=== PATIENT | male | born 1945 | race Caucasian/White ===

== ENCOUNTER → 2019-06-26 12:42 | Outpatient (CLI) | payer MEDICARE, OTHER, SELFPAY ==
[2015-12-05 06:53] VITALS: BMI 32.8
[2019-06-26 13:10] LABS: Mucous, Urine 0 SEEN /hpf (<or=2+); Red Blood Cells-Urine 0 SEEN /hpf (0-5); Squamous Epithelial Cells - UA 0 SEEN /hpf (0-5)
--- NOTE | 2019-06-26 13:18 | RAD_ITS ---
STUDY: X-RAY CHEST REASON FOR EXAM: Male, 74 years old. WHEEZING. TECHNIQUE: PA and lateral views of the chest. COMPARISON: None. FINDINGS: The lungs are clear and expanded. There is no demonstrated pleural abnormality. Normal size heart. Normal mediastinum and rahul. Normal visualized pulmonary arteries. There is atherosclerotic calcification of the aortic arch with tortuosity. There are diffuse degenerative changes of the visualized thoracic spine. There is degenerative osteoarthritis of the bilateral shoulders. There is no demonstrated abnormality of the visualized soft tissue structures of the upper abdomen. RAD/Chest PA and Lateral IMPRESSION: No acute cardiopulmonary disease. Electronically Signed: Pamela De Oliveira MD at 3:54 EST , Service support ,
[2019-06-26 13:51] LABS: Color, Urine Yellow (Yellow); Glucose, Dipstick Normal (Normal); Ketone-Dipstick Negative (Negative); Leukocyte Esterase-Dipstick 100 /ul (Negative); Nitrite-Dipstick Negative (Negative); Occult Blood-Urine Negative /ul (Negative); Protein-Dipstick Negative (Negative); Urine Bilirubin Dipstick Negative (Negative); Urine Clarity Clear (Clear); Urine Urobilinogen Normal (Normal)
[2019-06-26 14:16] LABS: Microalbumin,Random Urine < 5.0 mg/L (NO RANGE EST.)
[2019-06-26 14:18] LABS: Absolute Lymphocyte Count 2.07 X10^3/uL (0.83-4.51); Bacteria 1+ /hpf (None Seen); Basophil# 0.04 X10^3/uL; Basophil% 0.6 % (0-1); Eosinophil# 0.15 X10^3/uL; Eosinophils% 2.2 % (0-5); Hematocrit 43.2 % (40-54); Hemoglobin 13.8 g/dL (13.0-16.5); Lymphocyte # 2.07 X10^3/ul (4.0); Mean Corp Hgb Conc 31.9 g/dL (32-36); Mean Corpuscular Hgb 28.2 pg (27.0-32.0); Mean Corpuscular Volume 88.2 fL (80-94); Monocyte# 0.59 X10^3/uL; Monocyte% 8.6 % (0-10); NRBC Flagged by Analyzer 0 % (0-5); Neutrophil # 4.03 X10^3/uL (2.7-7.7); Neutrophil % 58.3 % (47-70); Platelet Count 151 K/mm3 (150-450); RBC Distribution Width CV 13.9 % (11.6-14.6); RBC Distribution Width SD 44.7 fl (35.1-43.9); White Blood Cells 0-5 SEEN /hpf (0-5); White Blood Count 6.9 K/mm3 (4.4-11.0)
[2019-06-26 14:43] LABS: AST(SGOT) 18 U/L (15-37); Alanine Aminotransfer ALT/SGPT 41 U/L (16-61); Albumin, Serum 3.5 g/dL (3.2-5.0); Alkaline Phosphatase 64 U/L (45-117); Anion Gap 4 (5-15); BUN 19 mg/dL (7-18); BUN/Creat Ratio 16.4 RATIO (10-20); Calcium,Total 9.1 mg/dL (8.5-10.1); Chloride 104 mmol/L (98-107); Cholesterol 133 mg/dL (200); Creatinine, Serum 1.16 mg/dL (0.70-1.30); EST Glomerular Filtration Rate 66 mL/min (>60); Est Glom Filt Rate - Afr Amer 79 mL/min (>60); Globulin 3.6 g/dL (2.2-4.2); Glucose 93 mg/dL (74-106); High Density Lipoprotein 47 mg/dL; PSA,Total- Diagnostic 1.28 ng/mL (0.0-4.0); Potassium 4.4 mmol/L (3.5-5.1); Protein, Total 7.1 g/dL (6.4-8.2); Sodium Level 139 mmol/L (136-145); Triglycerides 144 mg/dL; Very Low Density Lipoprotein 29 mg/dL (5-40)
== END ==
PROVIDERS: PCP Family Medicine; Referring Provider Family Medicine; Visit Provider Family Medicine
DX: I25.10 Atherosclerotic heart disease of native coronary artery without angina pectoris (principal); N40.0 Benign prostatic hyperplasia without lower urinary tract symptoms; M13.0 Polyarthritis, unspecified; R06.2 Wheezing
CPT/HCPCS: 36415; 71046; 80053; 80061; 81001; 82043; 82570; 84153; 85025

== ENCOUNTER → 2019-07-12 12:58 | Outpatient (CLI) | payer MEDICARE, OTHER, SELFPAY ==
--- NOTE | 2019-07-12 13:04 | ECHOCS_ITS ---
Reason For Study: WHEEZING Procedure This was a 2D Doppler, Color Flow transthoracic echocardiogram. The study was technically difficult. Exam performed in department. Left Ventricle Normal size and thickness. The estimated ejection fraction is 65 %. Stage 1 diastolic dysfunction. No regional wall motion abnormalities noted. Right Ventricle Mildly dilated right ventricle. Normal systolic function. Atria Normal left atrium. Normal right atrium. Normal atrial septum. Mitral Valve The mitral valve is structurally normal. No prolapse or stenosis seen. Tricuspid Valve Normal tricuspid valve. Trivial tricuspid valve insufficiency. Right ventricular systolic pressure estimated to be 27 mmHg. Aortic Valve Trisinus/trileaflet aortic valve. Normal aortic valve. Pulmonic Valve Normal pulmonic valve. Great Vessels Normal aortic root. Normal arch. Normal inferior vena cava. Inferior vena cava collapse with sniff. Pericardium/Pleural No pericardial effusion. Medication Diluted definity 3ml given slow IV push to enhance endocardial definition. MMode/2D Measurements & Calculations LVIDd: 4.6 cm IVSd: 0.94 cm Ao root diam: 3.0 cm LVIDs: 3.1 cm LVPWd: 1.0 cm RVDd: 3.9 cm FS: 31.1 % LAV(MOD-bp): 28.2 ml LVAd ap4: 22.7 cm2 SV(MOD-sp4): 37.8 ml LAV(MOD-bp) Indexed: 13.8 ml/m2 EDV(MOD-sp4): 59.1 ml LAV(MOD-sp2): 29.1 ml EDV(sp4-el): 62.1 ml LAV(MOD-sp4): 27.6 ml LVAs ap4: 12.2 cm2 ESV(MOD-sp4): 21.3 ml ESV(sp4-el): 22.0 ml EF(MOD-sp4): 64.0 % EF(sp4-el): 64.5 % SV(sp4-el): 40.1 ml LA A4 area: 13.4 cm2 LA dimension(2D): 3.3 cm RA A4 area: 11.2 cm2 Time Measurements MV dec time: 0.21 sec Doppler Measurements & Calculations MV E max ravindra: 79.8 cm/sec Lat Peak E' Ravindra: 11.2 cm/sec Med Peak E' Ravindra: 9.1 cm/sec MV A max ravindra: 102.3 cm/sec E/E' lat: 7.1 E/E' med: 8.8 MV E/A: 0.78 Ao V2 max: 155.1 cm/sec LV V1 max: 114.3 cm/sec PA V2 max: 125.1 cm/sec Ao max P.6 mmHg LV V1 max P.2 mmHg TR max ravindra: 232.2 cm/sec TR max P.6 mmHg Interpretation Summary The estimated ejection fraction is 65 %. Stage 1 diastolic dysfunction. Mildly dilated right ventricle. Trivial tricuspid valve insufficiency. Right ventricular systolic pressure estimated to be 27 mmHg. The study was technically difficult. Contrast injection was performed. There is no comparison study available. Ordering Physician: Jayden Hennessy Referring Physician: Jayden Hennessy Performed By: Rosario Smith RDCS
--- NOTE | 2019-07-12 13:55 | CT_ITS ---
STUDY: CT CHEST WITHOUT CONTRAST REASON FOR EXAM: Male, 74 years old. ORDERING PHYS WISHES TO R/O WHEEZING, CARDIOMEGALY, PULMONARY CONGESTION RADIATION DOSAGE (If Supplied By Facility): CTDIvol = ( 19.52 ) mGy, DLP = ( 660.11 ) mGycm TECHNIQUE: Transaxial imaging was performed without the administration of intravenous contrast material. Multiplanar coronal and sagittal images were reformatted. Individualized dose optimization techniques were used for this CT. COMPARISON: Comparison is made with prior chest radiograph dated June 26, 2019. FINDINGS: Small bilateral benign-appearing axillary lymph nodes. There is a 3.7 mm noncalcified nodule in the peripheral aspect of the left lower lobe as seen on axial image #107. A follow-up CT scan in 12 months is recommended. There is no demonstrated pleural abnormality. There are calcifications of the coronary arteries. Normal mediastinum. Normal hilar regions. Normal unenhanced pulmonary arteries. There is atherosclerotic calcification of the aortic arch. There are degenerative changes of the thoracic spine. Small hiatal hernia. CT/Chest without Contrast IMPRESSION: 3.7 mm noncalcified nodule in the peripheral lateral aspect of the left lower lobe. A one-year follow-up examination is recommended. Electronically Signed: Dayton Casas, at 15:22 EDT , Service support ,
== END ==
PROVIDERS: PCP Family Medicine; Referring Provider Family Medicine; Visit Provider Family Medicine
DX: R06.2 Wheezing (principal); R91.8 Other nonspecific abnormal finding of lung field
CPT/HCPCS: 71250; 93306; Q9957; A4216; C8929

== ENCOUNTER → 2019-09-11 17:31 | Outpatient (CLI) | payer MEDICARE, OTHER, SELFPAY ==
[2019-09-04 14:41] VITALS: BMI 32.8
[2019-09-11 17:38] LABS: Mucous, Urine 0 SEEN /hpf (<or=2+); Red Blood Cells-Urine 0 SEEN /hpf (0-5)
[2019-09-11 18:42] LABS: Color, Urine Yellow (Yellow); Glucose, Dipstick Normal (Normal); Ketone-Dipstick Negative (Negative); Leukocyte Esterase-Dipstick 500 /ul (Negative); Nitrite-Dipstick Positive (Negative); Occult Blood-Urine Negative /ul (Negative); Protein-Dipstick Negative (Negative); Specific Gravity, Urine 1.015 (1.002-1.030); Urine Bilirubin Dipstick Negative (Negative); Urine Clarity Sl. Cloudy (Clear); Urine Urobilinogen Normal (Normal)
[2019-09-11 18:57] LABS: Amorphous Sediment 1+; Bacteria 2+ /hpf (None Seen); Squamous Epithelial Cells - UA 0-5 SEEN /hpf (0-5); White Blood Cells 0-5 SEEN /hpf (0-5)
== END ==
PROVIDERS: PCP Family Medicine; Referring Provider Family Medicine; Visit Provider Family Medicine
DX: N39.0 Urinary tract infection, site not specified (principal)
CPT/HCPCS: 81001; 87077; 87086; 87088; 87186

== ENCOUNTER → 2020-01-22 16:01 | Outpatient (CLI) | payer MEDICARE, OTHER, SELFPAY ==
[2019-09-04 14:41] VITALS: BMI 32.8
--- NOTE | 2020-01-22 16:05 | CT_ITS ---
STUDY: CT ABDOMEN AND PELVIS WITHOUT CONTRAST REASON FOR EXAM: Male, 74 years old. Incontinence, laparoscopic Love fundoplication. RADIATION DOSAGE (If Supplied By Facility): CTDIvol = ( 18.18 ) mGy, DLP = ( 903.93 ) mGycm TECHNIQUE: Transaxial images were obtained from the dome of the diaphragm to the symphysis pubis without oral contrast, and without intravenous contrast. Sagittal and coronal images were reconstructed. Individualized dose optimization techniques were used for this CT. COMPARISON: None. FINDINGS: The visualized lung bases are unremarkable. The visualized portions of the heart are within normal limits. Postoperative changes of the distal esophagus. Normal liver. Normal gallbladder and extrahepatic biliary system. Normal spleen. Normal pancreas. Normal bilateral adrenal glands. Normal right kidney. Normal left kidney. Normal visualized stomach. Normal small intestine. Minimal diverticulosis involving the sigmoid colon. ] Appendix not visualized compatible with history of appendectomy. Fusiform distal abdominal aortic aneurysm measuring 6.1 x 4.2 x 3.7 cm in the craniocaudad, AP and transverse dimensions respectively. Atherosclerotic calcification of the abdominal aorta and proximal common iliac arteries. Normal inferior vena cava. Normal retroperitoneum. No intra-abdominal free air. Normal urinary bladder. Prostate gland is not enlarged. Normal abdominal wall. Multilevel degenerative changes of the lumbar spine. CT/Abdomen/Pelvis without Cont IMPRESSION: No acute findings in the abdomen or pelvis. No evidence of bowel obstruction. Minimal sigmoid diverticulosis. 4.2 x 3.7 cm fusiform distal abdominal aortic aneurysm. Electronically Signed: Matthew Summers MD at 4:21 EDT , Service support ,
== END ==
PROVIDERS: PCP Family Medicine; Referring Provider Urology; Visit Provider Urology
DX: R35.0 Frequency of micturition (principal); N39.41 Urge incontinence; N39.0 Urinary tract infection, site not specified
CPT/HCPCS: 74176

== ENCOUNTER → 2020-05-13 14:46 | Outpatient (CLI) | payer MEDICARE, OTHER, SELFPAY ==
[2019-09-04 14:41] VITALS: BMI 32.8
[2020-05-13 16:47] LABS: Absolute Lymphocyte Count 2.21 X10^3/uL (0.83-4.51); Absolute Neutrophil Count 4.5 X10^3/uL (2.0-7.7); Basophil# 0.03 X10^3/uL; Basophil% 0.4 % (0-1); Eosinophil# 0.18 X10^3/uL; Eosinophils% 2.3 % (0-5); Hematocrit 47.5 % (40-54); Hemoglobin 15.1 g/dL (13.0-16.5); Lymphocyte # 2.21 X10^3/ul (4.0); Lymphocyte % 28.8 % (19-41); Mean Corp Hgb Conc 31.8 g/dL (32-36); Mean Corpuscular Hgb 27.5 pg (27.0-32.0); Mean Corpuscular Volume 86.4 fL (80-94); Mean Platelet Vol. 10.9 fl (6.2-12.0); Monocyte# 0.73 X10^3/uL; Monocyte% 9.5 % (0-10); NRBC Flagged by Analyzer 0 % (0-5); Neutrophil # 4.51 X10^3/uL (2.7-7.7); Neutrophil % 58.7 % (47-70); Platelet Count 177 K/mm3 (150-450); RBC Distribution Width CV 14.9 % (11.6-14.6); RBC Distribution Width SD 47.8 fl (35.1-43.9); White Blood Count 7.7 K/mm3 (4.4-11.0)
[2020-05-13 17:18] LABS: ALB/GLOB Ratio 0.9 RATIO (0.9-2.4); AST(SGOT) 23 U/L (15-37); Alanine Aminotransfer ALT/SGPT 53 U/L (16-61); Albumin, Serum 3.6 g/dL (3.2-5.0); Alkaline Phosphatase 82 U/L (45-117); Anion Gap 6 (5-15); BUN 22 mg/dL (7-18); Calcium,Total 9.2 mg/dL (8.5-10.1); Chloride 106 mmol/L (98-107); EST Glomerular Filtration Rate 70 mL/min (>60); Est Glom Filt Rate - Afr Amer 84 mL/min (>60); Globulin 3.8 g/dL (2.2-4.2); Glucose 85 mg/dL (74-106); Potassium 4.3 mmol/L (3.5-5.1); Protein, Total 7.4 g/dL (6.4-8.2); Sodium Level 139 mmol/L (136-145); Thyroid Stim Hormone (TSH) 1.85 uIU/mL (0.358-3.74)
== END ==
PROVIDERS: PCP Family Medicine; Referring Provider Family Medicine; Visit Provider Family Medicine
DX: I10 Essential (primary) hypertension (principal); R60.9 Edema, unspecified
CPT/HCPCS: 36415; 80053; 84443; 85025

== ENCOUNTER 2020-07-11 12:12 | Outpatient (CLI) | payer MEDICARE, OTHER, SELFPAY ==
[2020-07-11 12:30] VITALS: BP 147/88; PULSE 103; RESP 18; TEMP 37.1; O2SAT 92; BMI 31.8
[2020-07-11 13:22] VITALS: BP 117/70; PULSE 89; RESP 18; TEMP 36.6; O2SAT 93
[2020-07-11 13:53] VITALS: BP 148/87; PULSE 84; RESP 18; TEMP 36.4; O2SAT 98
[2020-07-11 14:21] VITALS: BP 140/82; PULSE 83; RESP 18; TEMP 36.5; O2SAT 97
[2020-07-11 14:51] VITALS: BP 133/70; PULSE 86; RESP 18; TEMP 36.6; O2SAT 96
[2020-07-11 15:21] VITALS: BP 154/81; PULSE 91; RESP 18; TEMP 36.4; O2SAT 97
== END 2020-07-11 15:37 | disposition home or self-care (01) ==
LOC: MS2OUT 12:12 → MS2 12:13
PROVIDERS: PCP Family Medicine; Referring Provider Nurse Practitioner Acute Care; Visit Provider Nurse Practitioner Acute Care
DX: U07.1 COVID-19 (principal)
CPT/HCPCS: J7050; M0239; Q0245

== ENCOUNTER → 2020-12-02 13:38 | Outpatient (CLI) | payer MEDICARE, OTHER, SELFPAY ==
--- NOTE | 2020-12-02 13:43 | CT_ITS ---
INDICATION: repeat f/u of mass from 07/2020 EXAMINATION: CT CHEST WITHOUT CONTRAST - CT Chest W/O Contrast Injection TECHNIQUE: Helically acquired images were obtained of the chest. A radiation dose optimization technique was used for this scan. IV Contrast dosage and agent: None. COMPARISON: None. FINDINGS: LUNGS, PLEURA AND LARGE AIRWAYS: A stable 3.7 mm nodular density which is noncalcified is noted in the superior segment of the left lower lobe best noted on axial cut 51. This was noted previously and is unchanged. The lack of change since 07/12/2019 is most indicative of a noncalcified granuloma. A follow-up CT scan a year was continued stability is diagnostic of a granuloma. Very minimal pleural thickening is noted along the posterior aspect of the left lung. No pneumothorax. THYROID: No thyroid lesions. HEART AND PERICARDIUM: Coronary calcific arteriosclerosis is identified. No pericardial effusion. VESSELS: Thoracic aorta is not dilated. MEDIASTINUM AND YOUNG: No mediastinal or hilar adenopathy. Esophagus is unremarkable. No hiatal hernia. UPPER ABDOMEN: No acute pathology. BONES: No suspicious lytic or blastic abnormality. CT/Chest without Contrast IMPRESSION: 1.A noncalcified 3.7 mm pleural-based granulomas noted in the superior segment of the left lower lobe which is unchanged. A follow-up noncontrast CT scan of the chest in a year with continued stability is diagnostic of a benign granuloma.. 2. Coronary calcific arteriosclerosis Electronically Signed: Joel Andrea DO at 7:55 EDT Tel , Service support ,
== END ==
PROVIDERS: PCP Family Medicine; Referring Provider Family Medicine; Visit Provider Family Medicine
DX: R91.8 Other nonspecific abnormal finding of lung field (principal)
CPT/HCPCS: 71250

== ENCOUNTER → 2021-01-01 17:24 | Outpatient (CLI) | payer MEDICARE, OTHER, SELFPAY | PROVIDERS: PCP Family Medicine; Visit Provider Family Medicine | DX: Z20.822 Contact with and (suspected) exposure to COVID-19 (principal) | CPT/HCPCS: 87635; U0005; U0003 ==

== ENCOUNTER 2021-01-03 16:00 | Outpatient (CLI) | payer MEDICARE, OTHER, SELFPAY ==
[2021-01-03 16:07] VITALS: BP 172/80; PULSE 101; RESP 20; TEMP 37; O2SAT 94; BMI 31.8
[2021-01-03] MEDS: 0.9% Saline Lock 10 ML Syringe IV (16:28)
[2021-01-03 16:54] VITALS: BP 149/93; PULSE 92; RESP 18; TEMP 36.9; O2SAT 94
[2021-01-03 17:54] VITALS: BP 156/90; PULSE 95; RESP 18; TEMP 36.9; O2SAT 94
== END 2021-01-03 17:58 | disposition home or self-care (01) ==
LOC: MS2OUT 16:01 → MS2 16:02
PROVIDERS: PCP Family Medicine; Referring Provider Nurse Practitioner Acute Care; Visit Provider Nurse Practitioner Acute Care
DX: Z23 Encounter for immunization (principal); U07.1 COVID-19
CPT/HCPCS: J7050; M0243; A4216; Q0244

== ENCOUNTER → 2021-02-25 14:36 | Outpatient (CLI) | payer MEDICARE, OTHER, SELFPAY ==
[2021-02-25 17:35] LABS: Absolute Lymphocyte Count 2.33 X10^3/uL (0.83-4.51); Absolute Neutrophil Count 6.3 X10^3/uL (2.0-7.7); Basophil# 0.05 X10^3/uL; Basophil% 0.5 % (0-1); Eosinophil# 0.18 X10^3/uL; Eosinophils% 1.9 % (0-5); Hematocrit 50.3 % (40-54); Hemoglobin 16.6 g/dL (13.0-16.5); Lymphocyte # 2.33 X10^3/ul (0.83-4.51); Lymphocyte % 24.7 % (19-41); Mean Corpuscular Hgb 28.2 pg (27.0-32.0); Mean Corpuscular Volume 85.5 fL (80-94); Mean Platelet Vol. 10.7 fl (6.2-12.0); Monocyte# 0.61 X10^3/uL; Monocyte% 6.5 % (0-10); NRBC Flagged by Analyzer 0 % (0-5); Neutrophil # 6.25 X10^3/uL (2.7-7.7); Neutrophil % 66.1 % (47-70); Platelet Count 196 K/mm3 (150-450); RBC Distribution Width CV 14.6 % (11.6-14.6); RBC Distribution Width SD 45.8 fl (35.1-43.9); Red Blood Count 5.88 M/mm3 (4.6-6.2); White Blood Count 9.5 K/mm3 (4.4-11.0)
[2021-02-25 17:51] LABS: Erythrocyte Sedimentation Rate 17 mm/hr (0-20)
[2021-02-25 18:04] LABS: Vitamin B12 655 pg/mL (211-911)
[2021-02-25 18:14] LABS: ALB/GLOB Ratio 0.7 RATIO (0.9-2.4); AST(SGOT) 50 U/L (15-37); Alanine Aminotransfer ALT/SGPT 90 U/L (16-61); Albumin, Serum 3.2 g/dL (3.2-5.0); Alkaline Phosphatase 66 U/L (45-117); Anion Gap 8 (5-15); BUN 27 mg/dL (7-18); BUN/Creat Ratio 19.4 RATIO (10-20); Chloride 98 mmol/L (98-107); Creatinine, Serum 1.39 mg/dL (0.70-1.30); EST Glomerular Filtration Rate 53 mL/min (>60); Est Glom Filt Rate - Afr Amer 64 mL/min (>60); Ferritin 80 ng/mL (26-388); Globulin 4.6 g/dL (2.2-4.2); Glucose 182 mg/dL (74-106); Potassium 3.9 mmol/L (3.5-5.1); Protein, Total 7.8 g/dL (6.4-8.2); Sodium Level 134 mmol/L (136-145); Thyroid Stim Hormone (TSH) 1.39 uIU/mL (0.358-3.74)
[2021-02-25 18:15] LABS: Hemoglobin A1c 6.2 % (3.8-5.6)
[2021-02-26 13:00] LABS: Hepatitis C Antibody Preliminary Reactive (Nonreactive)
== END ==
PROVIDERS: PCP Family Medicine; Referring Provider Family Medicine; Visit Provider Family Medicine
DX: R53.83 Other fatigue (principal); E78.00 Pure hypercholesterolemia, unspecified; B19.20 Unspecified viral hepatitis C without hepatic coma; Z11.59 Encounter for screening for other viral diseases; Z79.899 Other long term (current) drug therapy
CPT/HCPCS: 80053; 82607; 82728; 83036; 84443; 85025; 85652; 86803

== ENCOUNTER 2021-05-13 15:32 | Outpatient (CLI) | payer MEDICARE, OTHER, SELFPAY ==
--- NOTE | 2021-05-13 15:42 | CT_ITS ---
STUDY: CT ABDOMEN AND PELVIS WITHOUT CONTRAST REASON FOR EXAM: Male, 76 years old. Gross hematuria. RADIATION DOSAGE (If Supplied By Facility): CTDIvol = ( 19.69 ) mGy, DLP = ( 1003.46 ) mGycm TECHNIQUE: Transaxial images were obtained from the dome of the diaphragm to the symphysis pubis without oral contrast, and without intravenous contrast. Sagittal and coronal images were reconstructed. Individualized dose optimization techniques were used for this CT. COMPARISON: 01/22/2020. FINDINGS: The visualized lung bases are unremarkable. The visualized portions of the heart are within normal limits. Normal liver. Normal gallbladder and extrahepatic biliary system. Normal spleen. Normal pancreas. Normal bilateral adrenal glands. Normal right kidney. Normal left kidney. Normal bilateral ureters. Small hiatal hernia. The stomach is otherwise grossly normal. Normal small intestine. And colonic diverticuli without acute inflammatory change. The appendix is visualized and appears normal. There is atherosclerotic changes of the abdominal aorta. There is a fusiform infrarenal abdominal aortic aneurysm measuring 4 x 4.1 cm in diameter. This tapers to the bifurcation. Normal inferior vena cava. Normal retroperitoneum. Normal urinary bladder. The prostate is small in size with central calcifications. No pelvic lymphadenopathy. No free air or free fluid is seen within the peritoneal cavity. Normal abdominal wall. There are diffuse degenerative changes of the visualized lumbar spine. CT/Abdomen/Pelvis without Cont IMPRESSION: 1. Stable abdominal aortic aneurysm. 2. No evidence of acute renal, ureteral or urinary bladder abnormality. 3. No evidence of acute intra-abdominal process or interval change. Electronically Signed: Landen Barry DO at 16:44 EST Tel [phone], Service support ,
== END 2021-05-13 23:59 | disposition short-term general hospital (02) ==
PROVIDERS: PCP Family Medicine; Referring Provider Urology; Visit Provider Urology
DX: R31.0 Gross hematuria (principal)
CPT/HCPCS: 74176; 87077; 87086; 87088; 87186

== ENCOUNTER 2021-06-11 14:30 | Outpatient (CLI) | payer MEDICARE, OTHER, SELFPAY ==
[2021-06-11 15:23] LABS: Absolute Lymphocyte Count 2.73 X10^3/uL (0.83-4.51); Absolute Neutrophil Count 6.7 X10^3/uL (2.0-7.7); Basophil# 0.04 X10^3/uL; Basophil% 0.4 % (0-1); Eosinophil# 0.13 X10^3/uL; Eosinophils% 1.2 % (0-5); Hematocrit 49.9 % (40-54); Lymphocyte # 2.73 X10^3/ul (0.83-4.51); Lymphocyte % 25.9 % (19-41); Mean Corp Hgb Conc 34.1 g/dL (32-36); Mean Corpuscular Hgb 28.1 pg (27.0-32.0); Mean Corpuscular Volume 82.6 fL (80-94); Mean Platelet Vol. 10.7 fl (6.2-12.0); Monocyte# 0.86 X10^3/uL; Monocyte% 8.2 % (0-10); NRBC Flagged by Analyzer 0 % (0-5); Neutrophil # 6.74 X10^3/uL (2.7-7.7); Platelet Count 201 K/mm3 (150-450); RBC Distribution Width SD 45.5 fl (35.1-43.9); Red Blood Count 6.04 M/mm3 (4.6-6.2); White Blood Count 10.5 K/mm3 (4.4-11.0)
[2021-06-11 16:01] LABS: ALB/GLOB Ratio 0.8 RATIO (0.9-2.4); AST(SGOT) 53 U/L (15-37); Alanine Aminotransfer ALT/SGPT 105 U/L (16-61); Albumin, Serum 3.4 g/dL (3.2-5.0); Alkaline Phosphatase 68 U/L (45-117); Anion Gap 9 (5-15); BUN 25 mg/dL (7-18); Calcium,Total 9.3 mg/dL (8.5-10.1); Chloride 97 mmol/L (98-107); Creatinine, Serum 1.25 mg/dL (0.70-1.30); EST Glomerular Filtration Rate 60 mL/min (>60); Est Glom Filt Rate - Afr Amer 72 mL/min (>60); Globulin 4.4 g/dL (2.2-4.2); Glucose 100 mg/dL (74-106); Potassium 3.5 mmol/L (3.5-5.1); Protein, Total 7.8 g/dL (6.4-8.2); Sodium Level 134 mmol/L (136-145)
[2021-06-11 16:05] LABS: Hemoglobin A1c 5.7 % (3.8-5.6)
== END 2021-06-11 23:59 | disposition home or self-care (01) ==
PROVIDERS: PCP Family Medicine; Referring Provider Family Medicine; Visit Provider Family Medicine
DX: G47.30 Sleep apnea, unspecified (principal); R73.03 Prediabetes
CPT/HCPCS: 36415; 80053; 83036; 85025

== ENCOUNTER 2021-06-13 09:53 | Day surgery (SDC) | payer MEDICARE, OTHER, SELFPAY ==
[2021-06-13 10:00] VITALS: BP 151/78; PULSE 70; RESP 16; TEMP 36.7; O2SAT 96; BMI 34.4
--- NOTE | 2021-06-13 11:02 | EKG12_ITS ---
Test Reason : PRE-OP Blood Pressure : / mmHG Vent. Rate : 071 BPM Atrial Rate : 071 BPM P-R Int : 212 ms QRS Dur : 092 ms QT Int : 404 ms P-R-T Axes : 046 019 -02 degrees QTc Int : 439 ms Sinus rhythm with 1st degree A-V block Low voltage QRS Inferior infarct , age undetermined , cannot be excluded Abnormal ECG Confirmed by ALEJANDRO RAHMAN, ZUHAIR ([id number]), copy editor AMI BEARD ([id number]) on 06/18/2021 12:43:23 PM Referred By: Julio C Carrasquillo Confirmed By:ZUHAIR ALLEN MD
--- NOTE | 2021-06-13 12:05 | BLA_PTH ---
PATIENT: RADU GAITAN Jr. LOC: [facility] [place] U#:[id number] AGE/SX: 76/M ROOM: RE06/13/[address]: Dr. Julio C Carrasquillo MD : 1945 BED: DIS: 06/13/2021 SPEC #: [id number] RECD: 06/13/21 13:09 STATUS: JAKE LEMOS #: [id number] СВЕТЛАНА: 06/13/21 12:[address]: Julio C Carrasquillo DEPT: SURGICAL PATHOLOGY RECD BY: Lolis Nowak ENTERED: 06/13/21 13:25 SP TYPE: BLADDER BX OTHR DR: Dr. Jayden Hennessy MD Tissues: Urinary bladder, NOS Procedures: Surgery Specimen Level IV HEADER OPERATION: Cyst, retrograde pyelograms, bladder biopsy PRE-OP DIAGNOSIS: BPH with lower urinary tract symptoms; gross hematuria; chronic cystitis TISSUE SUBMITTED: Bladder biopsy MICROSCOPIC DIAGNOSIS Urinary bladder, biopsy: Chronic cystitis. See comment. AM:gisela 06/16/2021 COMMENT Benign fragments of detrusor muscle are present in the biopsy. MICROSCOPIC DESCRIPTION Slides are reviewed. GROSS DESCRIPTION Received in fixative is one container labeled with the patient's name and designated bladder biopsy. The specimen consists of one irregular fragment of light lynn soft tissue that measures 0.5 x 0.2 x 0.1 cm. The specimen is totally submitted in one cassette. / SJ:gsiela 06/13/2021 TC:3 CPT: 42454
[2021-06-13] MEDS: Cefazolin 2 GM in 0.9% Normal Saline 100 ML IV (12:11)
--- NOTE | 2021-06-13 12:49 | PCM.OPRPT ---
Report of Operation Date of Procedure: 06/13/21 Pre-Operative Diagnosis: Gross hematuria and recurrent urinary tract infections Post-Operative Diagnosis: Same Surgery/Procedure Performed:: Cystoscopy, bladder biopsy, retrograde pyelogram Description of Surgical Findings:: 76-year-old male who is in a wheelchair and does void on his own but has been getting recurrent infection now with family is reporting gross hematuria so today we will do a work-up with a cystoscopy retrograde pyelogram he did have a CAT scan in the past that was unremarkable. He does have a history of recurrent urinary tract infections I think mostly due to his disability dysfunctional voiding he is on medical therapy for this with methenamine and tamsulosin oxybutynin. Family was requesting a possible TURP think this would help with the situation but I told him the very likely would not do a TURP given what I know over the patient but we will do an evaluation today and see if it is necessary. Patient was taken back to the operating room after smooth induction of anesthesia he was placed in dorsolithotomy position. The penis testicles were prepped and draped in usual fashion, he was uncircumcised, the urethra length he had some minor strictures or scar tissues along the urethra was able to get through this with the cystoscope very minor narrowing not significant once I got through this area then the prostate was short in length was not obstructive at all no obstruction TURP was not necessary took a photo of the document no obstruction. 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 I then did a retrograde pyelogram the right side this was normal we then cannulated the left ureteral orifice with a 5 Maori open-ended catheter and did a retrograde pyelogram of the right side left side and these were both normal. At this point I do not see any anatomical features that are causing his recurrent urinary tract infections I think his infection is primary related to his overall debility and chronic state of debility so bladder was drained was handed off the specimen of the tissue for the biopsy see him back in about a month or so for checkup the patient was taken back in good condition. Surgeon: adam Type of Anesthesia: General Drains: none Admit VTE Documentation VTE Present on Admission: No VTE Mechan Device Prophylaxis: SCD's VTE Pharm Prophylaxis ordered?: No
--- NOTE | 2021-06-13 12:53 | PCM.DC ---
Discharge Instructions Diet Discharge Diet: No restrictions Activity Discharge Activity: Return to Normal Activity Follow Up Care Please Follow Up With: Julio C Carrasquillo MD When: Call [phone] for an appointment Test Results: Test results from this visit will be discussed in further detail at your follow-up appointment, if applicable. Discharge Plan Admission Primary Reason for Your Visit: cystoscopy Attending Provider: Julio C Carrasquillo Primary Care Provider: Jayden Hennessy Discharge Orders/Prescriptions Prescriptions: Continued meloxicam 15 mg tablet 15 mg PO DAILY RF: 0 multivitamin capsule 1 cap PO DAILY RF: 0 cetirizine 10 mg capsule 10 mg PO DAILY RF: 0 finasteride 5 mg tablet 5 mg PO DAILY RF: 0 methenamine hippurate 1 gram tablet 1 g PO DAILY RF: 0 nitroglycerin 0.4 mg tablet, sublingual 0.4 mg SL Q5M PRN (Reason: chest pain) RF: 0 oxybutynin chloride 10 mg tablet extended release 24hr 10 mg PO DAILY RF: 0 nystatin 100,000 unit/gram powder 1 applic TOPICAL DAILY PRN (Reason: yeast infection) RF: 0 Lactobacillus acidophilus 1 billion cell tablet 1,000 mmu cells PO DAILY RF: 0 spironolacton-hydrochlorothiaz 25-25 mg tablet 1 tab PO DAILY RF: 0 ksehzthp-pppsxp-msqy-lemon 450-100 mg capsule 1 cap PO PRN PRN (Reason: muscle cramps) RF: 0 zinc 15 mg tablet 15 mg PO DAILY PRN (Reason: supplement) RF: 0 tamsulosin 0.4 MG capsule 0.4 mg PO QHS RF: 0 simvastatin 10 MG tablet 10 mg PO QHS RF: 0 ascorbic acid (vitamin C) 1,000 mg Capsule, Extended Release 1 cap PO QHS RF: 0 Held aspirin 81 mg tablet,delayed release (DR/EC) 81 mg PO DAILY RF: 0 Hold Instructions: till bleeding stops Referrals / Follow Up: Jayden Hennessy MD [Primary Care Provider] - Julio C Carrasquillo MD [STAFF PHYSICIAN] - Disposition Disposition (needs filled in before D/C Order can be placed): Home, Self Care
[2021-06-13 13:00] VITALS: BP 145/87; PULSE 62; RESP 18; TEMP 35.9; O2SAT 95; O2SAT 97
[2021-06-13] MEDS: Lactated Ringers 1,000 ML 15 ML IV (13:11)
[2021-06-13 13:15] VITALS: BP 137/80; PULSE 59; RESP 20
[2021-06-13 13:30] VITALS: BP 137/80; PULSE 64; RESP 20; O2SAT 95
[2021-06-13 13:38] VITALS: BP 139/77; BP 151/78; PULSE 61; RESP 18; TEMP 35.9; O2SAT 95
[2021-06-13 14:37] VITALS: BP 139/62; BP 151/78; PULSE 71; RESP 16; TEMP 37; O2SAT 95
--- NOTE | 2021-06-13 15:00 | SUR.PHASEII ---
[facility] out of network with patients insurance. Family is requesting that rx be sent to [facility] and a script sent to their mail order pharmacy. Notified Sree in pharmacy to to send script to [facility], Notified Dr Carrasquillo that family is requesting a script sent to mail order pharmacy. instructed patient to check with pharmacy tomorrow and to call [facility] office if they do not have the script. ksconicole
== END 2021-06-13 23:59 | disposition home or self-care (01) ==
LOC: SDC 09:54 → AC 09:54
PROVIDERS: PCP Family Medicine; Referring Provider Urology; Visit Provider Urology
PROC: (CPT 52332; principal; 2021-06-13 11:55)
DX: N40.1 Benign prostatic hyperplasia with lower urinary tract symptoms (principal); G82.20 Paraplegia, unspecified; R31.0 Gross hematuria; G47.10 Hypersomnia, unspecified; K21.9 Gastro-esophageal reflux disease without esophagitis; I25.2 Old myocardial infarction; E78.5 Hyperlipidemia, unspecified; I10 Essential (primary) hypertension; N39.41 Urge incontinence; R35.0 Frequency of micturition; J45.20 Mild intermittent asthma, uncomplicated; Z79.899 Other long term (current) drug therapy; Z79.82 Long term (current) use of aspirin; Z99.3 Dependence on wheelchair; Z86.16 Personal history of COVID-19
CPT/HCPCS: 52204; 00910; 76000; 87426; 88305; 93005; C9803; J7120; C1769; J2405

== ENCOUNTER 2021-06-16 20:15 | Outpatient (CLI) | payer MEDICARE, OTHER, SELFPAY | END 2021-06-16 23:59 | disposition home or self-care (01) | PROVIDERS: PCP Family Medicine; Referring Provider Nurse Practitioner Acute Care; Visit Provider Nurse Practitioner Acute Care | DX: G47.33 Obstructive sleep apnea (adult) (pediatric) (principal) | CPT/HCPCS: 95811 ==

== ENCOUNTER → 2022-03-31 | Outpatient (CLI) | payer MEDICARE, OTHER, SELFPAY ==
--- NOTE | 2022-03-31 14:25 | RAD_ITS ---
STUDY: X-RAY - THORACIC SPINE REASON FOR EXAM: Male, 77 years old. BACK PAIN TECHNIQUE: 2 view(s) of the thoracic spine were obtained. COMPARISON: None. FINDINGS: Normal kyphosis of the thoracic spine. There is no substantial scoliosis. There is multilevel osteophyte formation and endplate spondylosis in the mid to lower thoracic spine. Normal disc space heights. The soft tissue structures are unremarkable. RAD/Thoracic Spine 2 Views IMPRESSION: Degenerative changes. Electronically Signed: Cabrera Lee MD at 15:51 EST ,
--- NOTE | 2022-03-31 14:35 | RAD_ITS ---
STUDY: X-RAY - LUMBOSACRAL SPINE REASON FOR EXAM: Male, 77 years old. BACK PAIN TECHNIQUE: 6 view(s) of the lumbosacral spine were obtained. COMPARISON: None FINDINGS: There is loss of normal expected lumbar lordosis which may be secondary to muscle spasm versus positioning. There is no substantial scoliosis. There is normal alignment of the vertebrae. Normal vertebral bodies and endplates. There is mild disc space narrowing at L1-L2. There is multilevel anterior osteophyte formation primarily at T12-L1 through L3-L4. Normal bilateral sacral ala, sacroiliac joints, and visualized sacrum. Abdominal aortic aneurysm with calcification is identified, also noted on prior CT study from 2019. RAD/L/S Spine w Bend Min 6 Vw IMPRESSION: Degenerative changes. Abdominal aortic aneurysm as described on recent CTs as well. Electronically Signed: Cabrera Lee MD at 15:48 EST ,
== END | disposition home or self-care (01) ==
LOC: RAD 14:23
PROVIDERS: PCP Family Medicine; Referring Provider Family Medicine; Visit Provider Family Medicine
DX: M54.50 Low back pain, unspecified (principal)
CPT/HCPCS: 72070; 72114

== ENCOUNTER → 2022-06-09 | Outpatient (CLI) | payer MEDICARE, OTHER, SELFPAY ==
[2022-06-09 16:24] LABS: Bacteria 0 SEEN /hpf (None Seen); Mucous, Urine 0 SEEN /hpf (<or=2+); Red Blood Cells-Urine 0 SEEN /hpf (0-5); Squamous Epithelial Cells - UA 0 SEEN /hpf (0-5); White Blood Cells 0 SEEN /hpf (0-5)
[2022-06-09 18:07] LABS: Color, Urine Yellow (Yellow); Glucose, Dipstick Normal (Normal); Ketone-Dipstick Negative (Negative); Leukocyte Esterase-Dipstick 25 /ul (Negative); Nitrite-Dipstick Negative (Negative); Occult Blood-Urine Negative /ul (Negative); Protein-Dipstick Negative (Negative); Urine Bilirubin Dipstick Negative (Negative); Urine Clarity Clear (Clear); Urine Urobilinogen Normal (Normal)
[2022-06-09 18:23] LABS: Vitamin D,25 Hydroxy 83.3 ng/mL
[2022-06-09 19:05] LABS: ALB/GLOB Ratio 0.8 RATIO (0.9-2.4); AST(SGOT) 42 U/L (15-37); Alanine Aminotransfer ALT/SGPT 93 U/L (16-61); Albumin, Serum 3.5 g/dL (3.2-5.0); Alkaline Phosphatase 66 U/L (45-117); Anion Gap 9 (5-15); BUN 19 mg/dL (7-18); BUN/Creat Ratio 15.8 RATIO (10-20); Calcium,Total 9.3 mg/dL (8.5-10.1); Chloride 98 mmol/L (98-107); EST Glomerular Filtration Rate 63 mL/min (>60); Est Glom Filt Rate - Afr Amer 76 mL/min (>60); GGTP 57 U/L (15-85); Globulin 4.2 g/dL (2.2-4.2); Glucose 103 mg/dL (74-106); Potassium 4.2 mmol/L (3.5-5.1); Protein, Total 7.7 g/dL (6.4-8.2); Sodium Level 134 mmol/L (136-145)
== END | disposition home or self-care (01) ==
LOC: MTLAB 16:16
PROVIDERS: PCP Family Medicine; Referring Provider Family Medicine; Visit Provider Family Medicine
DX: N39.0 Urinary tract infection, site not specified (principal); R79.89 Other specified abnormal findings of blood chemistry; E78.00 Pure hypercholesterolemia, unspecified; E55.9 Vitamin D deficiency, unspecified; Z13.21 Encounter for screening for nutritional disorder
CPT/HCPCS: 36415; 80053; 81001; 82306; 82977; 87086; 87088

== ENCOUNTER 2022-07-01 11:22 | Inpatient (IN) | payer MEDICARE, OTHER, SELFPAY ==
[2022-07-01] VITALS (21 sets, daily range): BP systolic 85–189; BP diastolic 52–129; PULSE 75–148; RESP 13–24; TEMP 36.9–38.1; O2SAT 90–99; BMI 36.8; BMI 36.1
--- NOTE | 2022-07-01 11:44 | EKG12_ITS ---
Test Reason : GENERAL Blood Pressure : / mmHG Vent. Rate : 127 BPM Atrial Rate : 127 BPM P-R Int : 180 ms QRS Dur : 086 ms QT Int : 276 ms P-R-T Axes : 032 021 -24 degrees QTc Int : 401 ms Sinus tachycardia Inferior infarct , age undetermined Abnormal ECG Confirmed by LUCINDA RAHMAN, MILLICENT ([id number]), pictures editor AMI BEARD ([id number]) on 07/06/2022 9:33:10 AM Referred By: Confirmed By:STANFORD JANE MD
[2022-07-01] MEDS: Acetaminophen 325 MG Tablet 650 MG PO (12:08)
--- NOTE | 2022-07-01 12:30 | RAD_ITS ---
STUDY: X-RAY CHEST REASON FOR EXAM: Male, 77 years old. Fever TECHNIQUE: Single AP portable view of the chest. COMPARISON: Comparison is made with prior study dated 06/26/2019. FINDINGS: EKG electrodes are seen. The lungs are clear and expanded. There is no demonstrated pleural abnormality. There is mild cardiac enlargement. Normal mediastinum and rahul. Normal visualized pulmonary arteries. There is atherosclerotic calcification of the aortic arch with tortuosity. Normal visualized thoracic spine. Normal visualized ribs, clavicles, and shoulders. There is no demonstrated abnormality of the visualized soft tissue structures of the upper abdomen. RAD/Chest 1 View (Portable) IMPRESSION: Mild cardiomegaly. The lungs are clear. Electronically Signed: Dayton Casas MD at 13:24 EST ,
[2022-07-01 12:57] LABS: Mucous, Urine 0 SEEN /hpf (<or=2+); Squamous Epithelial Cells - UA 0 SEEN /hpf (0-5)
[2022-07-01 13:06] LABS: Lactic Acid 1.7 mmol/L (0.4-1.9)
[2022-07-01 13:31] LABS: ALB/GLOB Ratio 0.8 RATIO (0.9-2.4); AST(SGOT) 18 U/L (15-37); Alanine Aminotransfer ALT/SGPT 43 U/L (16-61); Albumin, Serum 3.3 g/dL (3.2-5.0); Alkaline Phosphatase 66 U/L (45-117); Anion Gap 8 (5-15); BUN 17 mg/dL (7-18); BUN/Creat Ratio 13.7 RATIO (10-20); CPK Total, Creatine Kinase 54 U/L (39-308); Calcium,Total 9.5 mg/dL (8.5-10.1); Chloride 99 mmol/L (98-107); Creatinine, Serum 1.24 mg/dL (0.70-1.30); EST Glomerular Filtration Rate 60 mL/min (>60); Est Glom Filt Rate - Afr Amer 73 mL/min (>60); Estimated Creatinine Clearance 45.73 ml/min; Globulin 3.9 g/dL (2.2-4.2); Glucose 142 mg/dL (74-106); Potassium 3.8 mmol/L (3.5-5.1); Protein, Total 7.2 g/dL (6.4-8.2); Sodium Level 136 mmol/L (136-145)
[2022-07-01 13:35] LABS: Color, Urine Yellow (Yellow); Glucose, Dipstick Normal (Normal); Ketone-Dipstick Negative (Negative); Leukocyte Esterase-Dipstick 500 /ul (Negative); Nitrite-Dipstick Positive (Negative); Occult Blood-Urine 250 /ul (Negative); Protein-Dipstick 100 mg/dl (Negative); Urine Bilirubin Dipstick Negative (Negative); Urine Clarity Cloudy (Clear); Urine Urobilinogen Normal (Normal)
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
[2022-07-01 13:42] LABS: International Normalized Ratio 1.2; Prothrombin Time (Protime)PT. 14.7 SECONDS (11.7-14.9)
[2022-07-01 13:43] LABS: Partial Thromboplast Time 32.2 Seconds (24.1-36.2)
[2022-07-01 13:44] LABS: Bacteria 2+ /hpf (None Seen); Red Blood Cells-Urine 25-50 SEEN /hpf (0-5); White Blood Cells 25-50 SEEN /hpf (0-5)
[2022-07-01] MEDS: Ceftriaxone 1 GM/50 ML BAG IV (14:19)
[2022-07-01] MEDS: Ipratropium/Albuterol Sulfate 3 ML AMPUL.NEB INHALATION (14:54)
[2022-07-01] MEDS: Ketorolac 15 MG/ML Vial IV (15:04)
--- NOTE | 2022-07-01 15:18 | ED.RN ---
CBC NOT RESULTED YET. LAB REPORTS A MACHINE WAS DOWN AND THEY WILL RESULT CBC OPAL.
[2022-07-01] MEDS: 0.9% Normal Saline 1,000 ML 999 ML IV (15:26)
--- NOTE | 2022-07-01 15:45 | CT_ITS ---
STUDY: CT CHEST, ABDOMEN T PELVIS WITH CONTRAST REASON FOR EXAM: Male, 77 years old. Abnormal x-ray, fever RADIATION DOSAGE (If Supplied By Facility): CTDIvol = ( 23.05 ) mGy, DLP = ( 2304.86 ) mGycm TECHNIQUE: Transaxial imaging was performed following intravenous administration of IV 100mL Isovue-300. Multiplanar coronal and sagittal images were reformatted. Individualized dose optimization techniques were used for this CT. COMPARISON: No relevant priors. FINDINGS: CHEST Right more than left lower lobe dependent atelectasis/infiltrate. There is no demonstrated pleural abnormality. Normal heart and pericardium. Normal mediastinum. Normal hilar regions. Normal unenhanced pulmonary arteries. Normal aorta arch and descending thoracic aorta. Normal osseous structures. ABDOMEN Normal liver. Normal gallbladder and extrahepatic biliary system. There is mild splenomegaly. Normal pancreas. Normal bilateral adrenal glands. Normal right kidney. Normal left kidney. Normal visualized stomach. Normal small intestine. Normal colon. There is non-visualization of the appendix. 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 Normal inferior vena cava. Normal retroperitoneum. Normal abdominal wall. Bridging sacroiliac joint osteophytes. Multilevel bridging thoracic and lumbar osteophytes. PELVIS Circumferential urinary bladder wall thickening and mild surrounding inflammatory stranding. Left more than right hydroureter and mucosal enhancement with mild associated inflammatory stranding. There is no pelvic fluid. There is no pelvic lymphadenopathy or mass lesion. There are prostatic calcifications. There is scattered atherosclerotic calcification of the pelvic arteries. CT/CT Chest, Abd, Pel w/Contrast IMPRESSION: 1. Infrarenal aortic aneurysm measures 4.4 cm in caliber. 2. Findings suggest bilateral ascending urinary tract infection. 3. Right more than left lower lobe pulmonary atelectasis/infiltrate. Electronically Signed: Moy Mckeon MD at 17:10 EST ,
--- NOTE | 2022-07-01 15:52 | NURSING ---
ICU [facility]
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
[2022-07-01 16:16] LABS: Absolute Lymphocyte Count 0.69 X10^3/uL (0.83-4.51); Basophil# 0.04 X10^3/uL; Basophil% 0.3 % (0-1); Eosinophil# 0.01 X10^3/uL; Eosinophils% 0.1 % (0-5); Hemoglobin 16.4 g/dL (13.0-16.5); Lymphocyte # 0.69 X10^3/ul (0.83-4.51); Lymphocyte % 4.9 % (19-41); Mean Corp Hgb Conc 33.5 g/dL (32-36); Mean Corpuscular Hgb 28.6 pg (27.0-32.0); Mean Corpuscular Volume 85.5 fL (80-94); Mean Platelet Vol. 10.9 fl (6.2-12.0); Monocyte# 1.13 X10^3/uL; Monocyte% 8.1 % (0-10); NRBC Flagged by Analyzer 0 % (0-5); Neutrophil # 12.04 X10^3/uL (2.7-7.7); Platelet Count 165 K/mm3 (150-450); RBC Distribution Width CV 14.8 % (11.6-14.6); RBC Distribution Width SD 45.8 fl (35.1-43.9); Red Blood Count 5.73 M/mm3 (4.6-6.2)
--- NOTE | 2022-07-01 16:55 | ED.RN ---
ATTEMPTED TO CALL REPORT TO ICU- ICU NURSE W/PT, WILL CALL BACK WHEN ABLE.
--- NOTE | 2022-07-01 19:17 | PCM.RX.CS ---
Consult Pharmacy has been consulted to manage selected antiobiotic: Vancomycin Type of Consult: New start Suspected Infection: Other Labs: Sodium 136 mmol/L (136-145) 07/01/22 12:45 Potassium 3.8 mmol/L (3.5-5.1) 07/01/22 12:45 Chloride 99 mmol/L (98-107) 07/01/22 12:45 Carbon Dioxide 29.0 mmol/L (21.0-32.0) 07/01/22 12:45 Anion Gap 8 (5-15) 07/01/22 12:45 BUN 17 mg/dL (7-18) 07/01/22 12:45 Creatinine 1.24 mg/dL (0.70-1.30) 07/01/22 12:45 Est GFR (MDRD) Af Amer 73 mL/min (>60) 07/01/22 12:45 Est GFR (MDRD) Non-Af 60 mL/min (>60) 07/01/22 12:45 BUN/Creatinine Ratio 13.7 RATIO (10-20) 07/01/22 12:45 Glucose 142 mg/dL (74-106) H 07/01/22 12:45 Microbiology: Microbiology 07/01/22 12:05 Nasal Secretion SARS-CoV-2 & FLU Antigen (Rapid) - Final Goal Trough: 15-20 mcg/mL Pharmacy Plan for Drug Dosing: NEW START IV VANCOMYCIN Consulting Physician: Dr. Enmanuel Rosales Indication: recurrent UTI Goal Trough: 15-20 SrCr: 1.24 CrCl: 57 mL/min (using AdjBW) Comments: Loading dose of 2g IV x1 ordered and administered 07/01/22 @1758 Vancomycin Dose: 1000 mg IV Q12hr to start 07/02/22 @0600 Pending Level: 07/03/22 @0530, prior to 4th total dose of vancomycin per protocol Pharmacy Service will continue to monitor and adjust dosing as required.
[2022-07-01 19:32] LABS: M R Staph aureus DNA By PCR Negative (Negative); Probe Check PASS; Specimen Processing Control PASS
[2022-07-01] MEDS: Ascorbic Acid 500 MG Tablet 1000 MG PO (21:12)
[2022-07-01] MEDS: Tamsulosin HCl 0.4 MG Capsule PO (21:12)
[2022-07-01] MEDS: Pravastatin 20 MG Tablet PO (21:12)
[2022-07-01] MEDS: Finasteride 5 MG Tablet PO (21:13)
[2022-07-01] MEDS: Fluticasone 0.05% 1 SPRAY NASAL.SRY 2 SPRAY NASAL (21:14)
[2022-07-01] MEDS: 0.9% Normal Saline 1,000 ML 100 ML IV (21:23)
[2022-07-02] VITALS (18 sets, daily range): BP systolic 80–145; BP diastolic 49–97; PULSE 78–103; RESP 14–22; TEMP 36.6–37.2; O2SAT 87–100; BMI 36.8
--- NOTE | 2022-07-02 01:08 | CPS ---
Patient refuses PAP at this time. Patient's family will bring in home unit
[2022-07-02 04:09] LABS: Absolute Lymphocyte Count 0.92 X10^3/uL (0.83-4.51); Absolute Neutrophil Count 10.3 X10^3/uL (2.0-7.7); Basophil# 0.04 X10^3/uL; Basophil% 0.3 % (0-1); Eosinophil# 0.03 X10^3/uL; Eosinophils% 0.2 % (0-5); Hematocrit 44.9 % (40-54); Hemoglobin 14.5 g/dL (13.0-16.5); Lymphocyte # 0.92 X10^3/ul (0.83-4.51); Lymphocyte % 7.3 % (19-41); Mean Corp Hgb Conc 32.3 g/dL (32-36); Mean Corpuscular Hgb 28.8 pg (27.0-32.0); Mean Corpuscular Volume 89.1 fL (80-94); Mean Platelet Vol. 10.4 fl (6.2-12.0); Monocyte# 1.11 X10^3/uL; Monocyte% 8.9 % (0-10); NRBC Flagged by Analyzer 0 % (0-5); Neutrophil # 10.33 X10^3/uL (2.7-7.7); Neutrophil % 82.6 % (47-70); POSITIVE COUNT YES; Platelet Count 95 K/mm3 (150-450); RBC Distribution Width CV 15.4 % (11.6-14.6); RBC Distribution Width SD 50.2 fl (35.1-43.9); Red Blood Count 5.04 M/mm3 (4.6-6.2); White Blood Count 12.5 K/mm3 (4.4-11.0)
[2022-07-02 04:11] LABS: Differential Indicated SCAN CRITERIA MET
[2022-07-02 04:22] LABS: Differential Comment SCANNED; Platelet Estimate SLT DEC (ADEQ); Platelet Morphology LARGE
[2022-07-02 04:26] LABS: ALB/GLOB Ratio 0.8 RATIO (0.9-2.4); AST(SGOT) 18 U/L (15-37); Alanine Aminotransfer ALT/SGPT 32 U/L (16-61); Albumin, Serum 2.6 g/dL (3.2-5.0); Alkaline Phosphatase 54 U/L (45-117); Anion Gap 7 (5-15); BUN 21 mg/dL (7-18); BUN/Creat Ratio 13.8 RATIO (10-20); Calcium,Total 8.5 mg/dL (8.5-10.1); Chloride 102 mmol/L (98-107); Creatinine, Serum 1.52 mg/dL (0.70-1.30); EST Glomerular Filtration Rate 48 mL/min (>60); Est Glom Filt Rate - Afr Amer 58 mL/min (>60); Estimated Creatinine Clearance 37.31 ml/min; Globulin 3.4 g/dL (2.2-4.2); Glucose 123 mg/dL (74-106); Magnesium 1.9 mg/dL (1.6-2.6); Phosphorus 2.5 mg/dL (2.5-4.9); Potassium 3.8 mmol/L (3.5-5.1); Sodium Level 134 mmol/L (136-145)
[2022-07-02] MEDS: Vancomycin IV 1,000 MG/200 ML BAG 200 MG IV ×2 (06:36→19:02)
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
[2022-07-02] MEDS: Aspirin E.C. 81 MG Tablet PO (07:48)
[2022-07-02] MEDS: Multivitamins,Therapeutic Tablet 1 TABLET PO (07:49)
[2022-07-02] MEDS: hydroCHLOROthiazide 25 MG Tablet PO (07:52)
[2022-07-02] MEDS: Enoxaparin 40 MG/0.4 ML Syringe SC (07:52)
--- NOTE | 2022-07-02 08:40 | PCM.PN.HOSP ---
Subjective Subjective Feels better than when he came in, no issues overnight Objective Data Objective Data Vital Signs: Vital Signs Temp Pulse Resp BP Pulse Ox O2 Del Method O2 Flow Rate 98.6 F 83 15 105/49 L 96 Room Air 3 07/02/22 07:36 07/02/22 07:36 07/02/22 07:36 07/02/22 07:36 07/02/22 07:36 07/02/22 07:36 07/02/22 06:00 Oxygen Flow Rate (L/min) 3 Oxygen Delivery Method Room Air Weight: 231 lb 7.766 oz Body Mass Index (BMI) 36.8 Intake & Output: Intake and Output for Last 24 Hours 07/01/22 07/02/22 07/03/22 03:59 03:59 03:59 Intake Total 2000 / 3250 2180 / 2180 Output Total 250 / 700 975 / 975 Balance 1750 / 2550 1205 / 1205 Lab / Micro Data Result Diagrams: 07/02/22 04:00 07/02/22 04:00 Labs: Laboratory Results - last 24 hr 07/01/22 11:55: Sodium Cancelled, Potassium Cancelled, Chloride Cancelled, Carbon Dioxide Cancelled, Anion Gap Cancelled, BUN Cancelled, Creatinine Cancelled, Estim Creat Clear Calc Cancelled, Est GFR (MDRD) Af Amer Cancelled, Est GFR (MDRD) Non-Af Cancelled, BUN/Creatinine Ratio Cancelled, Glucose Cancelled, Calcium Cancelled, Total Bilirubin Cancelled, AST Cancelled, ALT Cancelled, Alkaline Phosphatase Cancelled, Total Creatine Kinase Cancelled, Total Protein Cancelled, Albumin Cancelled, Globulin Cancelled, Albumin/Globulin Ratio Cancelled 07/01/22 12:30: Lactic Acid 1.7 07/01/22 12:45: PT 14.7, INR 1.2, APTT 32.2 07/01/22 12:45: Urine Color Yellow, Urine Clarity Cloudy, Urine pH 7.0, Ur Specific [place] 1.010, Urine Protein 100 H, Urine Glucose (UA) Normal, Urine Ketones Negative, Urine Occult Blood 250 H, Urine Nitrite Positive H, Urine Bilirubin Negative, Urine Urobilinogen Normal, Ur Leukocyte Esterase 500 H, Urine RBC 25-50 SEEN, Urine WBC 25-50 SEEN, Ur Squamous Epith Cells 0 SEEN, Urine Bacteria 2+, Urine Mucus 0 SEEN 03/01/23 12:45: Sodium 136, Potassium 3.8, Chloride 99, Carbon Dioxide 29.0, Anion Gap 8, BUN 17, Creatinine 1.24, Estim Creat Clear Calc 45.73, Est GFR (MDRD) Af Amer 73, Est GFR (MDRD) Non-Af 60, BUN/Creatinine Ratio 13.7, Glucose 142 H, Calcium 9.5, Total Bilirubin 0.90, AST 18, ALT 43, Alkaline Phosphatase 66, Total Creatine Kinase 54, Total Protein 7.2, Albumin 3.3, Globulin 3.9, Albumin/Globulin Ratio 0.8 L 07/01/22 12:50: WBC 14.0 H, RBC 5.73, Hgb 16.4, Hct 49.0, MCV 85.5, MCH 28.6, MCHC 33.5, RDW Std Deviation 45.8 H, RDW Coeff of Harriet 14.8 H, Plt Count 165, MPV 10.9, Immature Gran % (Auto) 0.600, Neut % (Auto) 86.0 H, Lymph % (Auto) 4.9 L, Cotton % (Auto) 8.1, Eos % (Auto) 0.1, Baso % (Auto) 0.3, Absolute Neuts (auto) 12.0 H, Absolute Lymphs (auto) 0.69 L, Nucleated RBC % 0 07/01/22 17:55: MRSA (PCR) Negative 07/02/22 04:00: WBC 12.5 H, RBC 5.04, Hgb 14.5, Hct 44.9, MCV 89.1, MCH 28.8, MCHC 32.3, RDW Std Deviation 50.2 H, RDW Coeff of Harriet 15.4 H, Plt Count 95 L, MPV 10.4, Immature Gran % (Auto) 0.700, Neut % (Auto) 82.6 H, Lymph % (Auto) 7.3 L, Cotton % (Auto) 8.9, Eos % (Auto) 0.2, Baso % (Auto) 0.3, Absolute Neuts (auto) 10.3 H, Absolute Lymphs (auto) 0.92, Nucleated RBC % 0, Differential Comment SCANNED, Platelet Estimate SLT DEC, Plt Morphology Comment LARGE 07/02/22 04:00: Sodium 134 L, Potassium 3.8, Chloride 102, Carbon Dioxide 25.0, Anion Gap 7, BUN 21 H, Creatinine 1.52 H, Estim Creat Clear Calc 37.31, Est GFR (MDRD) Af Amer 58 L, Est GFR (MDRD) Non-Af 48 L, BUN/Creatinine Ratio 13.8, Glucose 123 H, Calcium 8.5, Phosphorus 2.5, Magnesium 1.9, Total Bilirubin 1.00, AST 18, ALT 32, Alkaline Phosphatase 54, Total Protein 6.0 L, Albumin 2.6 L, Globulin 3.4, Albumin/Globulin Ratio 0.8 L Micro: Microbiology 07/01/22 12:05 Nasal Secretion SARS-CoV-2 & FLU Antigen (Rapid) - Final Radiography Diagnostic Testing: Radiology Impression Chest X-Ray 07/01/22 12:30 IMPRESSION: Mild cardiomegaly. The lungs are clear. Electronically Signed: Dayton Casas MD at 13:24 EST , Chest/Abdomen/Pelvis CT 07/01/22 15:45 IMPRESSION: 1. Infrarenal aortic aneurysm measures 4.4 cm in caliber. 2. Findings suggest bilateral ascending urinary tract infection. 3. Right more than left lower lobe pulmonary atelectasis/infiltrate. Electronically Signed: Moy Mckeon MD at 17:10 EST , Rhythm Strip Rhythm Strip: Sinus Tach Rate: 127 Ectopy: None Physical Exam Narrative General: Alert, Oriented x3, Cooperative, No apparent distress HEENT: Atraumatic, PERRLA, EOMI, Normocephalic Oral: Moist Mucosa Neck: Supple, No JVD Lungs: Diminished, Normal air movement, No rhonchi, No wheeze, No rales Cardiovascular: Regular rate, Regular Rhythm, Normal S1, Normal S2, No murmurs Abdomen: Soft, Non Tender, Non-Distended, No Hepato-splenomegaly Extremities: No edema, Capillary Refill Less than 3 Seconds Skin: Minor skin tear on his left paredes Musculoskeletal: No Tenderness to Palpation of Joints or Extremities Neurological: Chronic paraplegia of his lower extremities Psych/Mental Status: Normal Affect, Appropriate Assessment & Plan Assessment/Plan (1) Sepsis: (2) UTI (urinary tract infection): (3) Fever: (4) Tachycardia: (5) Infrarenal abdominal aortic aneurysm (AAA) without rupture: PLAN: Plan 1. Sepsis secondary to UTI/overactive bladder/BPH ? Continue with IV antibiotics ? Urine cultures are pending, he did was positive in the past for ESBL ? CT of the abdomen and pelvis was negative for any hydronephrosis ? Do recommend outpatient follow-up with urology secondary to his UTI could have been exacerbated by the oxybutynin ? Continue with Flomax 2. CAD/HTN/HLD/infrarenal aortic fusiform aneurysm ? His aneurysm is a 4 x 4 centimeter, will need to follow-up with vascular surgery as an outpatient ? Blood pressures are stable ? Continue with his home blood pressure medications ? Continue with his statin DVT: Lovenox Charges/Coding Visit Charges Inpatient E&M: 07693 Subs Hosp L2
--- NOTE | 2022-07-02 09:50 | CASEMGMT ---
RN?CM?AIR QUALITY ENGINEER?CM?to room to meet with patient for initial transition planning/care coordination?assessment.?RN?CM?introduced self and role at [facility].? Pt voices understanding and consents to?assessment?at this time.? Pt resting in bed in no distress at this time.? Pt's daughters/POA's, Batsheva and Kim, @ bedside. Pt is A/O at this time but deferred questions to his daughters, stating They take care of everything. Care providers, pharmacy, and demographics verified/updated at this time. PCP: Dr Hennessy. Pt goes to [facility] 1[facility]2 x's/year. Specialists: Dr Carrasquillo-urology, [facility] intake man. Preferred Pharmacy: [facility] @ d/c. Insurance: [facility], AARP Prescription Benefit:?Yes Living Will/HPOA:?dtr's not sure if pt has done a LW. He does have HCPOA. Dtr, Batsheva, is listed as primary POA. Dtr, Kim, is 1st alternative. LNOK: Dtr's, Batsheva and Kim Living Arrangements: Lives w/Batsheva. [facility] w/ramp entrance. Dtr's assist w/all care. Pt is NWB and they use ceiling lift for all transfers from bed to W/C, to shower. [place] provides aides [place] thru [facility] for total of 12 hrs/week. Transportation:?daughters DME: Has the following DME:?electric w/c, ceiling lift, CPAP, shower chair, w/c van, rails/grab bars, BSC. No home O2. ? State no need for further DME at this time.? HHC/SNF: No hx SNF. Has had HHC in the past. Batsheva Triplett, [facility] would like HHC for therapy, but she would like pt initally set up with a HHC agency for skilled level of care where [facility] for on-going/maintenance therapy. She states will call the [facility] to inquire what options there are. Dtr to notify CHRISTIANE LIND once she decides who she wishes for referral to be sent to. Pt and dtr's wish for pt to return home and states has no concerns with going home at time of discharge.? CM?to follow for further discharge planning/needs.? Pt and dtr's voice no further concerns/needs at this time.? Advised them to ask for?CM?if any further questions/concerns/needs arise.? They voice understanding. PLAN:??Home w/HHC Sergo BSN?RN?CM
[2022-07-02] MEDS: Tolterodine Tartrate 2 MG CAP.SA PO (10:32)
[2022-07-02] MEDS: Fluticasone 0.05% 1 SPRAY NASAL.SRY 2 SPRAY NASAL ×2 (10:32→21:45)
[2022-07-02] MEDS: Spironolactone 25 MG Tablet PO (10:32)
--- NOTE | 2022-07-02 15:18 | NURSING ---
report called to pcu for transfer to room 117, family present, transferred per bed with belongings
[2022-07-02] MEDS: Sodium Chloride 0.65% 1 SPRAY SPRAY.BTL 2 SPRAY NASAL (17:47)
[2022-07-02] MEDS: Ipratropium/Albuterol Sulfate 3 ML AMPUL.NEB INHALATION (17:47)
[2022-07-02] MEDS: Tamsulosin HCl 0.4 MG Capsule PO (21:46)
[2022-07-02] MEDS: Pravastatin 20 MG Tablet PO (21:47)
[2022-07-02] MEDS: Finasteride 5 MG Tablet PO (21:47)
[2022-07-02] MEDS: Ascorbic Acid 500 MG Tablet 1000 MG PO (21:48)
[2022-07-03] VITALS: BP 140/68; PULSE 88; RESP 16; TEMP 36.1; O2SAT 94
[2022-07-03] MEDS: 0.9% Saline Lock 10 ML Syringe IV (01:11)
[2022-07-03 04:00] VITALS: BP 112/56; PULSE 84; RESP 18; TEMP 36.3; O2SAT 92
[2022-07-03 05:54] LABS: Absolute Lymphocyte Count 1.45 X10^3/uL (0.83-4.51); Absolute Neutrophil Count 7.2 X10^3/uL (2.0-7.7); Basophil# 0.04 X10^3/uL; Basophil% 0.4 % (0-1); Hematocrit 42.8 % (40-54); Hemoglobin 14.1 g/dL (13.0-16.5); Lymphocyte # 1.45 X10^3/ul (0.83-4.51); Lymphocyte % 14.2 % (19-41); Mean Corp Hgb Conc 32.9 g/dL (32-36); Mean Corpuscular Hgb 28.3 pg (27.0-32.0); Mean Corpuscular Volume 85.9 fL (80-94); Mean Platelet Vol. 10.3 fl (6.2-12.0); Monocyte# 1.26 X10^3/uL; Monocyte% 12.4 % (0-10); NRBC Flagged by Analyzer 0 % (0-5); Neutrophil # 7.17 X10^3/uL (2.7-7.7); Neutrophil % 70.3 % (47-70); Platelet Count 124 K/mm3 (150-450); RBC Distribution Width CV 15.1 % (11.6-14.6); RBC Distribution Width SD 47.2 fl (35.1-43.9); Red Blood Count 4.98 M/mm3 (4.6-6.2); White Blood Count 10.2 K/mm3 (4.4-11.0)
[2022-07-03 06:00] VITALS: BMI 37.4
[2022-07-03 06:17] LABS: Anion Gap 8 (5-15); BUN 19 mg/dL (7-18); BUN/Creat Ratio 12.6 RATIO (10-20); Chloride 103 mmol/L (98-107); Creatinine, Serum 1.51 mg/dL (0.70-1.30); EST Glomerular Filtration Rate 48 mL/min (>60); Est Glom Filt Rate - Afr Amer 58 mL/min (>60); Estimated Creatinine Clearance 37.56 ml/min; Glucose 121 mg/dL (74-106); Potassium 3.5 mmol/L (3.5-5.1); Sodium Level 138 mmol/L (136-145)
--- NOTE | 2022-07-03 06:59 | PHA.PHARE_ITS ---
Consult Pharmacy has been consulted to manage selected antiobiotic: Vancomycin Type of Consult: Follow-up Suspected Infection: Sepsis Prior Doses of Antibiotics Received/Current Regimen: current dose is vanc 1000mg IV q12h Labs: Sodium 138 mmol/L (136-145) 07/03/22 05:43 Potassium 3.5 mmol/L (3.5-5.1) 07/03/22 05:43 Chloride 103 mmol/L (98-107) 07/03/22 05:43 Carbon Dioxide 27.0 mmol/L (21.0-32.0) 07/03/22 05:43 Anion Gap 8 (5-15) 07/03/22 05:43 BUN 19 mg/dL (7-18) H 07/03/22 05:43 Creatinine 1.51 mg/dL (0.70-1.30) H 07/03/22 05:43 Est GFR (MDRD) Af Amer 58 mL/min (>60) L 07/03/22 05:43 Est GFR (MDRD) Non-Af 48 mL/min (>60) L 07/03/22 05:43 BUN/Creatinine Ratio 12.6 RATIO (10-20) 07/03/22 05:43 Glucose 121 mg/dL (74-106) H 07/03/22 05:43 Vancomycin Trough 17.0 ug/mL (5.0-15.0) H 07/03/22 05:43 Microbiology: Microbiology 07/01/22 12:45 Urine, Clean Catch Urine Culture - Preliminary GNR lactose international marketing coordinator 07/01/22 12:05 Nasal Secretion SARS-CoV-2 & FLU Antigen (Rapid) - Final Weight used for dosin.8 kg Estimated Creatinine Clearance: 47ml/min Goal Trough: 15-20 mcg/mL Pharmacy Plan for Drug Dosing: The vanc trough drawn at 05:43 today (approximately 10.75 hrs after the previous dose) was 17.0. This is within goal range so will keep same dose. Recheck a trough in 2 days per protocol. The patient's CrCl of 47ml/min was calculated using an adjusted body weight. Pharmacy Service will continue to monitor and adjust dosing as required. Follow-Up Labs: Trough Vancomycin Labs to be done on [date and time ordered]: 07/05/22 05:30
[2022-07-03 07:06] VITALS: PULSE 85; RESP 16
[2022-07-03] MEDS: Ipratropium/Albuterol Sulfate 3 ML AMPUL.NEB INHALATION ×2 (07:06→13:11)
--- NOTE | 2022-07-03 08:37 | NURSING ---
IV vancomycin not started on time as pt is refusing to allow another IV to be started; pt only has one peripheral IV at this time.
[2022-07-03 08:44] VITALS: BP 113/62; PULSE 95; RESP 17; TEMP 36.8; O2SAT 94
[2022-07-03] MEDS: Fluticasone 0.05% 1 SPRAY NASAL.SRY 2 SPRAY NASAL (08:52)
[2022-07-03] MEDS: Aspirin E.C. 81 MG Tablet PO (08:53)
[2022-07-03] MEDS: Tolterodine Tartrate 2 MG CAP.SA PO (08:53)
[2022-07-03] MEDS: Spironolactone 25 MG Tablet PO (08:53)
[2022-07-03] MEDS: hydroCHLOROthiazide 25 MG Tablet PO (08:53)
[2022-07-03] MEDS: Multivitamins,Therapeutic Tablet 1 TABLET PO (08:53)
[2022-07-03] MEDS: Enoxaparin 40 MG/0.4 ML Syringe SC (08:54)
[2022-07-03 09:01] VITALS: O2SAT 95
--- NOTE | 2022-07-03 09:20 | DCINST_ITS ---
Discharge Instructions Diet Discharge Diet: Low fat / Low cholesterol Activity Discharge Activity: Return to Normal Activity Dressing / Incision Call your doctor if you observe: Fever of 101 or Higher, Shortness of breath, Dizziness, Fainting spells, Swelling in the ankles, Chest pain and Increased palpitations (irregular heartbeat) Follow Up Care Test Results: Test results from this visit will be discussed in further detail at your follow- up appointment, if applicable. Discharge Plan Admission Admit Date/Time: 07/01/22 15:44 Attending Provider: Siva Cannon Primary Care Provider: Jayden Hennessy Consulting Providers: Otilia Rosales ; Milton Pradhan ; Jl Hoff ; Bobby Vizcaino ; Joey Waldron ; Sandra Malagon TURBINE ENGINEER Instructions Additional Instructions / Restrictions: Follow-up with your PCP in 3 to 5 days to monitor your renal function as an out patient as well as your electrolytes. Discharge Orders/Prescriptions Prescriptions: New cephalexin 500 mg capsule 500 mg PO BID 7 Days Qty: 14 0RF Continued meloxicam 15 mg tablet 15 mg PO DAILY aspirin 81 mg tablet,delayed release (DR/EC) 81 mg PO DAILY Hold Instructions: till bleeding stops finasteride 5 mg tablet 5 mg PO QPM nitroglycerin 0.4 mg tablet, sublingual 0.4 mg SL Q5M PRN (Reason: CHEST PAIN ) oxybutynin chloride 10 mg tablet extended release 24hr 10 mg PO DAILY nystatin 100,000 unit/gram powder 1 applic TOPICAL DAILY PRN (Reason: YEAST INFECTION ) Lactobacillus acidophilus 1 billion cell tablet 1,000 mmu cells PO DAILY spironolacton-hydrochlorothiaz 25-25 mg tablet 1 tab PO DAILY tamsulosin 0.4 MG capsule 0.4 mg PO QHS multivitamin Tablet 1 tab PO DAILY ascorbic acid (vitamin C) 1,000 mg Tablet 1,000 mg PO QPM pravastatin 20 mg tablet 20 mg PO DAILY fluticasone propionate 50 mcg/actuation spray,suspension 2 spray INTRANASAL BID cholecalciferol (vitamin D3) 25 mcg (1,000 unit) Tablet 25 mcg PO UD grape seed extract 150 mg Tablet Extended Release 150 mg PO DAILY Lemon 450 mg PO/SL DAILY Referrals / Follow Up: Jayden Hennessy MD [Primary Care Provider] - Within 1 Week Disposition Disposition (needs filled in before D/C Order can be placed): Home, Self Care
--- NOTE | 2022-07-03 09:58 | PHA.DC.MC ---
Pharmacy Service has performed discharge medication reconciliation and counseling for this patient. Counselled by PharmD Candidate Angelika Sosa The patient was counseled on the following discharge medications and changes in medications for homegoing were reviewed. 1. KEFLEX The Reason for Use, instructions for use, and potential side effects were reviewed for all new medications. The patient's questions regarding all of their medications were answered. The patient demonstrated some understanding but would benefit from further education and reinforcement. Patient's daughters care for him at home, and were not in room. Informed patient that pharmacy can come back if they have questions, left Karen education in patient room. Home Medications tamsulosin 0.4 mg capsule 0.4 mg PO QHS PROSTATE 12/05/15 aspirin 81 mg tablet,delayed release 81 mg PO DAILY HEART HEALTH 09/04/19 meloxicam 15 mg tablet 15 mg PO DAILY PAIN 09/04/19 Lactobacillus acidophilus 1 billion cell tablet 1,000 mmu cells PO DAILY GUT HEALTH 07/10/20 finasteride 5 mg tablet 5 mg PO QPM PROSTATE 07/10/20 nitroglycerin 0.4 mg sublingual tablet 0.4 mg sublingual Q5M PRN CHEST PAIN 07/10/20 nystatin 100,000 unit/gram topical powder 1 applic topical DAILY PRN YEAST INFECTION 07/10/20 oxybutynin chloride 10 mg tablet,extended release 24 hr 10 mg PO DAILY OVERACTIVE BLADDER 07/10/20 spironolactone 25 mg-hydrochlorothiazide 25 mg tablet 1 tab PO DAILY BLOOD PRESSURE 01/21/22 Lemon 450 mg PO/SL DAILY SUPPLEMENT 07/01/22 ascorbic acid (vitamin C) 1,000 mg tablet 1,000 mg PO QPM SUPPLEMENT 07/01/22 cholecalciferol (vitamin D3) 25 mcg (1,000 unit) tablet 25 mcg PO UD SUPPLEMENT 07/01/22 fluticasone propionate 50 mcg/actuation nasal spray,suspension 2 spray intranasal BID NASAL CONGESTION 07/01/22 grape seed extract 150 mg tablet,extended release 150 mg PO DAILY SUPPLEMENT 07/01/22 multivitamin 1 tab PO DAILY HEALTH MAINTENANCE 07/01/22 pravastatin 20 mg tablet 20 mg PO DAILY CHOLESTEROL 07/01/22 cephalexin 500 mg capsule 500 mg PO BID 7 days #14 caps 07/03/22 The patient's discharge medication list was reviewed for discrepancies and discrepancies were resolved.
--- NOTE | 2022-07-03 10:31 | CASEMGMT ---
Addendum entered by Irvin Koroma 07/03/22 12:21: Scripts for mask and tubing for nebulizer received from Dr Cannon and faxed to [facility] pharmacy per dtr request. Script given to dtr. Script also received for purewick or condom catheter and provided to dtr. Dtr made aware [facility] able to accept pt for therapy and someone from [facility] should be calling them today to arrange SOC. Dr Cannon has e-scribed medication for nebulizer tx's to [facility] retail pharmacy and dtr made aware of same. Addendum entered by Irvin Koroma 07/03/22 11:28: Addendum: CHRISTIANE LIND did offer list of HHC agencies, but she declined wanting list, stating she had no preference if [facility] unable to accept. [facility] able to accept pt. They were made aware pt is discharging home today and d/c instructions sent to them via [facility]. Original Note: CHRISTIANE LIND NOTE: Pt being discharged home today. CHRISTIANE LIND placed call to dtr, Corina, and she was made aware pt is discharging home today. Discussed HHC and other discharge planning needs. She states does not have list of HHC agencies that CT would follow long-term and to send referral to anyone who can take him. She states prefers for pt to have [facility]. CHRISTIANE LIND notified her that [facility] does not typically go further than 30 min. She asks for CHRISTIANE LIND to inquire of them if they would consider taking pt. CHRISTIANE LIND informed her this would be done. She states, if they are unable to accept pt, she has not further preferences. Dtr also requests the following: Scripts for nebulizer tx's and nebulizer masks and tubing. She states pt already has 2 nebulizers. She does not recall what DME co the nebulizers came from. She asks for script to be faxed to [facility] in [place]. Script for Purewick incontinence system. CHRISTIANE LIND informed her insurance typically does not cover for this item. She asked further questions, stating insurance will cover for [place] catheter and why insurance would not cover for Purewick. CHRISTIANE LIND informed her this CHRISTIANE LIND will ask for a script from hospitalist and this can be given to her if she wishes to attempt to get coverage for this item. Call placed to [facility] and spoke w/Ines. She reviewed pt's address and verified they are unable to accept pt, as he lives [place]. Call placed to [facility]. They state they do cover pt's area and asked for referral to be sent via [facility]port. Done at this time. Sergo JARVISN RN CM
[2022-07-03] MEDS: Vancomycin IV 1,000 MG/200 ML BAG 200 MG IV (10:35)
[2022-07-03] MEDS: Psyllium 1 PACKET PO (10:39)
[2022-07-03 13:11] VITALS: PULSE 78; RESP 16
--- NOTE | 2022-07-03 13:38 | PCM.DC.SUM ---
Providers Date of Admission: 07/01/22 Primary Care Physician: Dr. Jayden Hennessy MD Consultations 07/01/22 17:28 Consult: Light Cleaner / Pulmonary Medicine Routine Consulting Provider: Pulmonary Medicine denis [place] Reason for Consult: sepsis EMERGENT Consult: No MD Notified: Yes Date Notified: 07/01/22 Time Notified: 15:52 Method of Notification: Text Reason For Visit: SEPSIS 2/2 UTI Diagnosis Discharge Diagnosis (1) Sepsis: Status: Acute Code(s): A41.9 - Sepsis, unspecified organism (2) Acute UTI: Status: Acute Code(s): N39.0 - Urinary tract infection, site not specified Plan DVT: Lovenox Medications at Discharge Home Medications tamsulosin 0.4 mg capsule 0.4 mg PO QHS PROSTATE 12/05/15 aspirin 81 mg tablet,delayed release 81 mg PO DAILY HEART HEALTH 09/04/19 meloxicam 15 mg tablet 15 mg PO DAILY PAIN 09/04/19 Lactobacillus acidophilus 1 billion cell tablet 1,000 mmu cells PO DAILY GUT HEALTH 07/10/20 finasteride 5 mg tablet 5 mg PO QPM PROSTATE 07/10/20 nitroglycerin 0.4 mg sublingual tablet 0.4 mg sublingual Q5M PRN CHEST PAIN 07/10/20 nystatin 100,000 unit/gram topical powder 1 applic topical DAILY PRN YEAST INFECTION 07/10/20 oxybutynin chloride 10 mg tablet,extended release 24 hr 10 mg PO DAILY OVERACTIVE BLADDER 07/10/20 spironolactone 25 mg-hydrochlorothiazide 25 mg tablet 1 tab PO DAILY BLOOD PRESSURE 01/21/22 Lemon 450 mg PO/SL DAILY SUPPLEMENT 07/01/22 ascorbic acid (vitamin C) 1,000 mg tablet 1,000 mg PO QPM SUPPLEMENT 07/01/22 cholecalciferol (vitamin D3) 25 mcg (1,000 unit) tablet 25 mcg PO UD SUPPLEMENT 07/01/22 fluticasone propionate 50 mcg/actuation nasal spray,suspension 2 spray intranasal BID NASAL CONGESTION 07/01/22 grape seed extract 150 mg tablet,extended release 150 mg PO DAILY SUPPLEMENT 07/01/22 multivitamin 1 tab PO DAILY HEALTH MAINTENANCE 07/01/22 pravastatin 20 mg tablet 20 mg PO DAILY CHOLESTEROL 07/01/22 albuterol sulfate 0.63 mg/3 mL solution for nebulization 0.63 mg (3 mL) inhalation Q6H PRN shortness of breath or wheezing #75 mL 07/03/22 cephalexin 500 mg capsule 500 mg PO BID 7 days #14 caps 07/03/22 Hospital Course Operations None Procedures None Summary of Care Provided Minutes Spent on Discharge: 35 Hospital Course: Per HPI: RADU GAITAN, is a 77 M who presented to the emergency department at [facility] on 07/01/2022 with his daughters who brought him in for shaking chills.? Per the family the patient seemed normal today and then all of a sudden started to have pretty violent shaking chills this afternoon.? They brought him to the emergency department and he was found to have a fever of 100.6.? Family also noted that he seemed to be a bit weaker and not as clear with his memory and thought process over the past couple days prior to admission.? The patient also reports he had being some dysuria and reported to me that he started feeling a little bit off the day prior to presentation.? The daughters reported that they were not aware of that at the the time of presentation.? He evidently recently completed a 10-day course of amoxicillin 2 days ago.? A urine culture was done by his outpatient primary care physician that showed possible Enterococcus over colony counts at that time were less than the thousand.? I am on clear if another urine culture was obtained but per the family it sounded like this is the culture they were treating off of.? Patient also reports some increased fatigue and generalized weakness.? His daughters are his caregivers.? The patient has seen urology in the past and is currently on Macrobid suppression for frequent UTIs previously.? Family reports he has had urodynamic studies but is unable to remember when those were last performed. On presentation his temperature was 100.6 which has been his Tmax thus far.? Heart rate was 133, blood pressure was 159/129, respiratory rate 24 and oxygen saturations were 93% on room air.? He did drop to as low as 90% on room air and he was placed on nasal cannula 2 L which improved his oxygen saturation to 95 to 98%.? His CBC showed a leukocytosis of 14.0 with a left shift and an 86% neutrophilia.? His coags were normal.? Chemistry panel was unremarkable.? His lactic acid was normal at 1.7.? Liver enzymes are normal.? His urine was suggestive of infection having positive nitrite, leuk esterase, white cells and 2+ bacteria.? Chest x-ray showed mild cardiomegaly with clear lungs.? EKG showed sinus tachycardia with normal axis, normal intervals and no ST-T wave segments consistent with acute ischemia. Cultures were obtained in the emergency department and he was initiated on broad-spectrum antibiotics.? He does meet sepsis criteria as noted below.? Request for admission was made.? Given the concern for gram-negative sepsis and cytokine release with antibiotic initiation.? We will admit him to the ICU. Hospital Course: 1. Sepsis secondary to UTI/overactive bladder/BPH?77-year-old male with a history of multiple UTIs in the past presents to the hospital septic with UTI. It was found to be in the central pansensitive E. coli and was discharged on p.o. Keflex twice daily secondary to his creatinine clearance for 7 days. After which I do recommend that he continue Macrobid for suppression. I discussed with the family that it is unlikely to ever be risk-free from developing another UTI especially given his overactive bladder and his BPH. Can continue with his oxybutynin and his Flomax though I would follow-up with his just to see if the oxybutynin can be discontinued and we can either increase the dose or add medications to his Flomax to hopefully prevent further infections in the future. I discussed with him and his daughter the plan for discharge today they both expressed understanding of the risk benefits of going home and would like to go home today. Blood cultures negative and this E. coli was ESBL negative 2. Coronary artery disease, hypertension, hyperlipidemia, infrarenal aortic fusiform aneurysm, paraplegia are all chronic medical conditions which complicate his care. His home medications were continued where appropriate Physical Exam Narrative General: Alert, Oriented x3, Cooperative, No apparent distress HEENT: Atraumatic, PERRLA, EOMI, Normocephalic Oral: Moist Mucosa Neck: Supple, No JVD Lungs: Diminished, Normal air movement, No rhonchi, No wheeze, No rales Cardiovascular: Regular rate, Regular Rhythm, Normal S1, Normal S2, No murmurs Abdomen: Soft, Non Tender, Non-Distended, No Hepato-splenomegaly Extremities: No edema, Capillary Refill Less than 3 Seconds Skin: Minor skin tear on his left paredes Musculoskeletal: No Tenderness to Palpation of Joints or Extremities Neurological: Chronic paraplegia of his lower extremities Psych/Mental Status: Normal Affect, Appropriate Weight / BMI Weight Weight: 235 lb 8 oz Body Mass Index (BMI) 37.4 ABG / Lab / Microbiology Data Result Diagrams: 07/03/22 05:43 07/03/22 05:43 Laboratory: Laboratory Results - last 24 hr 07/03/22 05:43: Vancomycin Trough 17.0 H 07/03/22 05:43: WBC 10.2, RBC 4.98, Hgb 14.1, Hct 42.8, MCV 85.9, MCH 28.3, MCHC 32.9, RDW Std Deviation 47.2 H, RDW Coeff of Harriet 15.1 H, Plt Count 124 L, MPV 10.3, Immature Gran % (Auto) 0.700, Neut % (Auto) 70.3 H, Lymph % (Auto) 14.2 L, [place] % (Auto) 12.4 H, Eos % (Auto) 2.0, Baso % (Auto) 0.4, Absolute Neuts (auto) 7.2, Absolute Lymphs (auto) 1.45, Nucleated RBC % 0 07/03/22 05:43: Sodium 138, Potassium 3.5, Chloride 103, Carbon Dioxide 27.0, Anion Gap 8, BUN 19 H, Creatinine 1.51 H, Estim Creat Clear Calc 37.56, Est GFR (MDRD) Af Amer 58 L, Est GFR (MDRD) Non-Af 48 L, BUN/Creatinine Ratio 12.6, Glucose 121 H, Calcium 9.0 Microbiology: Microbiology 07/01/22 12:30 Blood Culture (Wb) - Left Hand Blood Culture - Preliminary No growth in 48 hours. 07/01/22 11:55 Blood Culture (Wb) - Anticubital Left Blood Culture - Preliminary No growth in 48 hours. 07/01/22 12:45 Urine, Clean Catch Urine Culture - Final Escherichia coli 07/01/22 12:05 Nasal Secretion SARS-CoV-2 & FLU Antigen (Rapid) - Final D/C Instructions Discharge Diet: Low fat / Low cholesterol Call your doctor if you observe: Fever of 101 or Higher, Shortness of breath, Dizziness, Fainting spells, Swelling in the ankles, Chest pain and Increased palpitations (irregular heartbeat) Meaningful Use Info Meaningful Use Diagnoses (Choose all that apply): None applicable Discharge Plan Admission Admit Date/Time: 07/01/22 15:44 Attending Provider: Siva Cannon Primary Care Provider: Jayden Hennessy Consulting Providers: Otilia Rosales ; Milton Pradhan ; Jl Hoff ; Bobby Vizcaino ; Joey Waldron ; Sandra Malagon LOCAL 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 Discharge Orders/Prescriptions Prescriptions: New cephalexin 500 mg capsule 500 mg PO BID 7 Days Qty: 14 0RF albuterol sulfate 0.63 mg/3 mL solution for nebulization 0.63 mg inhalation Q6H PRN (Reason: shortness of breath or wheezing) Qty: 75 0RF Continued meloxicam 15 mg tablet 15 mg PO DAILY aspirin 81 mg tablet,delayed release (DR/EC) 81 mg PO DAILY Hold Instructions: till bleeding stops finasteride 5 mg tablet 5 mg PO QPM nitroglycerin 0.4 mg tablet, sublingual 0.4 mg SL Q5M PRN (Reason: CHEST PAIN ) oxybutynin chloride 10 mg tablet extended release 24hr 10 mg PO DAILY nystatin 100,000 unit/gram powder 1 applic TOPICAL DAILY PRN (Reason: YEAST INFECTION ) Lactobacillus acidophilus 1 billion cell tablet 1,000 mmu cells PO DAILY spironolacton-hydrochlorothiaz 25-25 mg tablet 1 tab PO DAILY tamsulosin 0.4 MG capsule 0.4 mg PO QHS multivitamin Tablet 1 tab PO DAILY ascorbic acid (vitamin C) 1,000 mg Tablet 1,000 mg PO QPM pravastatin 20 mg tablet 20 mg PO DAILY fluticasone propionate 50 mcg/actuation spray,suspension 2 spray INTRANASAL BID cholecalciferol (vitamin D3) 25 mcg (1,000 unit) Tablet 25 mcg PO UD grape seed extract 150 mg Tablet Extended Release 150 mg PO DAILY Lemon 450 mg PO/SL DAILY Referrals / Follow Up: Jayden Hennessy MD [Primary Care Provider] - 07/07/22 2:30 pm Disposition Disposition (needs filled in before D/C Order can be placed): Home, Self Care Charges/Coding Visit Charges Inpatient E&M: 75115 Disch Hosp >30min
== END 2022-07-03 14:08 | disposition home or self-care (01) | DRG 872 ==
LOC: ED 16:08 → ICU 16:11 → PCU 07-02 15:57
PROVIDERS: Admitting Provider Internal Medicine; Emergency Provider Emergency Medicine; PCP Family Medicine; Visit Provider Family Medicine
DX: A41.51 Sepsis due to Escherichia coli [E. coli] (principal); G82.20 Paraplegia, unspecified; J98.11 Atelectasis; N39.0 Urinary tract infection, site not specified; I71.43 Infrarenal abdominal aortic aneurysm, without rupture; E78.00 Pure hypercholesterolemia, unspecified; I10 Essential (primary) hypertension; G47.33 Obstructive sleep apnea (adult) (pediatric); I25.10 Atherosclerotic heart disease of native coronary artery without angina pectoris; I25.2 Old myocardial infarction; N40.0 Benign prostatic hyperplasia without lower urinary tract symptoms; R09.02 Hypoxemia; E66.9 Obesity, unspecified; Z68.37 Body mass index [BMI] 37.0-37.9, adult; Z95.5 Presence of coronary angioplasty implant and graft; Z79.82 Long term (current) use of aspirin; Z79.899 Other long term (current) drug therapy; Z87.440 Personal history of urinary (tract) infections; Z86.16 Personal history of COVID-19; Z87.891 Personal history of nicotine dependence; Z66 Do not resuscitate
CPT/HCPCS: 36415; 71045; 71260; 74177; 80048; 80053; 80202; 81001; 82550; 83605; 83735; 84100; 85025; 85610; 85730; 87040; 87077; 87086; 87088; 87186; 87428; 87641; 93005; 94640; 94668; 97110; 97162; 97166; 97802; 99252; 99285; J7030; J7040; Q9967; A4216; G0463

== ENCOUNTER → 2023-06-25 | Outpatient (CLI) | payer MEDICARE, OTHER, SELFPAY ==
--- NOTE | 2023-06-25 14:46 | RAD_ITS ---
INDICATION: pulmonary fibrosis EXAMINATION/TECHNIQUE: X-RAY - XR Chest 2 Views COMPARISON: Prior study dated: 07/01/2022 FINDINGS: LINES/DEVICES: None. LUNGS: No consolidation, edema or effusion. No pneumothorax. Patient''s chin obscures the thoracic inlet. MEDIASTINUM AND CARDIOVASCULAR STRUCTURES: Cardiac silhouette not enlarged. Central airways and mediastinal contour are unremarkable. BONES AND SOFT TISSUES: No demonstrated acute osseous changes. RAD/Chest PA and Lateral IMPRESSION: No radiographic evidence of acute cardiopulmonary disease. Electronically Signed: Hardik Charles MD at 15:07 EST ,
[2023-06-25 17:56] LABS: Hematocrit 51.2 % (40-54); Hemoglobin 16.7 g/dL (13.0-16.5); Mean Corp Hgb Conc 32.6 g/dL (32-36); Mean Corpuscular Hgb 28.1 pg (27.0-32.0); Mean Corpuscular Volume 86.1 fL (80-94); Mean Platelet Vol. 11.3 fl (6.2-12.0); Platelet Count 214 K/mm3 (150-450); RBC Distribution Width CV 14.5 % (11.6-14.6); RBC Distribution Width SD 45.1 fl (35.1-43.9); Red Blood Count 5.95 M/mm3 (4.6-6.2); White Blood Count 10.7 K/mm3 (4.4-11.0)
[2023-06-25 18:09] LABS: Vitamin D,25 Hydroxy 82.4 ng/mL
[2023-06-25 18:23] LABS: ALB/GLOB Ratio 0.8 RATIO (0.9-2.4); AST(SGOT) 37 U/L (15-37); Alanine Aminotransfer ALT/SGPT 72 U/L (16-61); Albumin, Serum 3.4 g/dL (3.2-5.0); Alkaline Phosphatase 76 U/L (45-117); Anion Gap 9 (5-15); BUN 25 mg/dL (7-18); BUN/Creat Ratio 18.1 RATIO (10-20); Calcium,Total 9.2 mg/dL (8.5-10.1); Chloride 101 mmol/L (98-107); Creatinine, Serum 1.38 mg/dL (0.70-1.30); EST Glomerular Filtration Rate 53 mL/min (>60); Est Glom Filt Rate - Afr Amer 64 mL/min (>60); Ferritin 157 ng/mL (26-388); Globulin 4.1 g/dL (2.2-4.2); Glucose 98 mg/dL (74-106); Magnesium 2.4 mg/dL (1.6-2.6); Protein, Total 7.5 g/dL (6.4-8.2); Sodium Level 135 mmol/L (136-145)
[2023-06-29 14:09] LABS: PROEL- A/G Ratio 1.3 (0.7-1.7); PROEL- Alpha-1 Globulin 0.2 g/dL (0.0-0.4); PROEL- Alpha-2 Globulin 0.6 g/dL (0.4-1.0); PROEL- Gamma Globulin 1.2 g/dL (0.4-1.8); PROEL-M-Spike 0.5 g/dL (Not Observed)
== END | disposition home or self-care (01) ==
PROVIDERS: PCP Family Medicine; Referring Provider Family Medicine; Visit Provider Family Medicine
DX: R53.83 Other fatigue (principal); J84.10 Pulmonary fibrosis, unspecified; E61.1 Iron deficiency; E55.9 Vitamin D deficiency, unspecified
CPT/HCPCS: 36415; 71046; 80053; 82306; 82728; 83735; 84165; 85027

== ENCOUNTER → 2023-07-22 | Outpatient (CLI) | payer MEDICARE, OTHER, SELFPAY ==
--- NOTE | 2023-07-22 09:01 | AAVD_ITS ---
Reason For Study: AAA Aorta Measurements Aorta Doppler Measurements Proximal aorta measures2.42 x 2.44cm. in cross- Peak systolic flow velocities within the proximal sectional axis. aorta measure 43.9 cm/sec. Proximal aorta measures2.09cm. in longitudinal Peak systolic flow velocities within the mid aorta axis. measure 38.4 cm/sec. Mid aorta measures4.41 x 4.43cm. in cross- Peak systolic flow velocities within the distal sectional axis. aorta measure 21.9 cm/sec. Mid aorta measures4.33cm. in longitudinal axis. 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 Mid Aorta true lumen, 2.62 x 2.37 x 2.60 cm. Distal aorta measures3.27 x 3.42cm. in cross- sectional axis. Distal aorta measures3.15cm. in longitudinal axis. Left Iliac Artery Left iliac artery measures 0.81 x 1.03 cm. in the cross-sectional axis. Left iliac artery measures 1.00 cm. in the longitudinal axis. Peak systolic velocity in the left iliac artery measures 178.6 cm/sec. Right Iliac Artery Right iliac artery measures 0.67 x 0.70 cm. in the cross-sectional axis. Right iliac artery measures 0.83 cm. in the longitudinal axis. Peak systolic velocity in the right iliac artery measures 330.8 cm/sec. Procedure Aorta IVC Iliac vasculature or bypass grafts 49102. Tehcnically difficult study due to patient being wheelchair bound. Exam performed in department. VL/Abd Aortic/IVC Duplex scan Interpretation Summary Aorta patent, 4.43 cm aneurysm present. Right iliac artery normal caliber with >50% stenosis. Left iliac artery patent, normal caliber Ordering Physician: Jayden Hennessy Referring Physician: Jayden Hennessy Performed By: Mary Ramirez RVT
== END | disposition home or self-care (01) ==
LOC: US 08:46
PROVIDERS: PCP Family Medicine; Referring Provider Family Medicine; Visit Provider Family Medicine
DX: I71.40 Abdominal aortic aneurysm, without rupture, unspecified (principal)
CPT/HCPCS: 93978

== ENCOUNTER → 2023-11-19 | Outpatient (CLI) | payer MEDICARE, OTHER, SELFPAY ==
[2023-11-19 17:35] LABS: Absolute Lymphocyte Count 3.46 X10^3/uL (0.83-4.51); Absolute Neutrophil Count 5.7 X10^3/uL (2.0-7.7); Basophil# 0.08 X10^3/uL; Basophil% 0.8 % (0-1); Eosinophil# 0.19 X10^3/uL; Eosinophils% 1.8 % (0-5); Hematocrit 52.6 % (40-54); Hemoglobin 17.2 g/dL (13.0-16.5); Lymphocyte # 3.46 X10^3/ul (0.83-4.51); Lymphocyte % 33.3 % (19-41); Mean Corp Hgb Conc 32.7 g/dL (32-36); Mean Corpuscular Hgb 28.2 pg (27.0-32.0); Mean Corpuscular Volume 86.2 fL (80-94); Mean Platelet Vol. 10.4 fl (6.2-12.0); Monocyte# 0.93 X10^3/uL; Monocyte% 8.9 % (0-10); NRBC Flagged by Analyzer 0 % (0-5); Neutrophil # 5.69 X10^3/uL (2.7-7.7); Neutrophil % 54.7 % (47-70); Platelet Count 210 K/mm3 (150-450); RBC Distribution Width CV 14.5 % (11.6-14.6); RBC Distribution Width SD 45.4 fl (35.1-43.9); White Blood Count 10.4 K/mm3 (4.4-11.0)
[2023-11-19 17:59] LABS: ALB/GLOB Ratio 0.9 RATIO (0.9-2.4); AST(SGOT) 33 U/L (15-37); Alanine Aminotransfer ALT/SGPT 53 U/L (16-61); Albumin, Serum 3.6 g/dL (3.2-5.0); Alkaline Phosphatase 59 U/L (45-117); Anion Gap 8 (5-15); BUN 18 mg/dL (7-18); BUN/Creat Ratio 15.1 RATIO (10-20); Calcium,Total 9.8 mg/dL (8.5-10.1); Chloride 98 mmol/L (98-107); Creatinine, Serum 1.19 mg/dL (0.70-1.30); EST Glomerular Filtration Rate 63 mL/min (>60); Est Glom Filt Rate - Afr Amer 76 mL/min (>60); Globulin 4.2 g/dL (2.2-4.2); Glucose 92 mg/dL (74-106); Potassium 3.9 mmol/L (3.5-5.1); Protein, Total 7.8 g/dL (6.4-8.2); Sodium Level 136 mmol/L (136-145)
[2023-11-19 18:08] LABS: Syphilis Antibodies Non-reactive
[2023-11-22 14:09] LABS: PROEL- A/G Ratio 1.1 (0.7-1.7); PROEL- Albumin 3.8 g/dL (2.9-4.4); PROEL- Alpha-1 Globulin 0.2 g/dL (0.0-0.4); PROEL- Alpha-2 Globulin 0.6 g/dL (0.4-1.0); PROEL- Beta Globulin 1.1 g/dL (0.7-1.3); PROEL- Gamma Globulin 1.4 g/dL (0.4-1.8); PROEL- Globulin, Total 3.4 g/dL (2.2-3.9); PROEL- TOTAL PROTEIN 7.2 g/dL (6.0-8.5); PROEL-M-Spike 0.7 g/dL (Not Observed)
== END | disposition home or self-care (01) ==
LOC: MTLAB 16:23
PROVIDERS: PCP Family Medicine; Referring Provider Family Medicine; Visit Provider Family Medicine
DX: R41.89 Other symptoms and signs involving cognitive functions and awareness (principal); D47.2 Monoclonal gammopathy; R53.83 Other fatigue
CPT/HCPCS: 36415; 80053; 84165; 84443; 85025; 86780

== ENCOUNTER → 2024-10-03 | Outpatient (CLI) | payer MEDICARE, OTHER, SELFPAY ==
[2024-10-03 15:45] LABS: Ammonia 28.9 umol/L (16-60)
[2024-10-03 18:28] LABS: AST(SGOT) 42 U/L (<=37); Alanine Aminotransfer ALT/SGPT 70 U/L (<=46); Albumin, Serum 3.8 g/dL (3.4-4.8); Alkaline Phosphatase 74 U/L (40-129); Anion Gap 12 (5-15); BUN 19 mg/dL (4-19); BUN/Creat Ratio 18.6 RATIO (10-20); Calcium,Total 9.6 mg/dL (7.6-11.0); Carbon Dioxide 25.5 mmol/L (21.0-32.0); Chloride 96 mmol/L (98-108); EST Glomerular Filtration Rate 77 (>60); Globulin 3.8 g/dL (2.2-4.2); Glucose 95 mg/dL (70-99); Potassium 3.7 mmol/L (3.3-5.1); Protein, Total 7.5 g/dL (5.9-8.4); Sodium Level 133 mmol/L (133-145); Total Bilirubin 0.41 mg/dL (0.00-1.30)
[2024-10-05 12:08] LABS: GGTP 31 IU/L (0-65)
== END | disposition home or self-care (01) ==
LOC: MFPLAB 14:08
PROVIDERS: PCP Family Medicine; Referring Provider Family Medicine; Visit Provider Family Medicine
DX: R74.8 Abnormal levels of other serum enzymes (principal)
CPT/HCPCS: 36415; 80053; 82140; 82306; 82977

== ENCOUNTER → 2024-11-06 | Outpatient (CLI) | payer MEDICARE, OTHER, SELFPAY | END | disposition home or self-care (01) | LOC: US 10:10 → CVS 10:13 | PROVIDERS: PCP Family Medicine; Referring Provider Family Medicine; Visit Provider Family Medicine | DX: J84.10 Pulmonary fibrosis, unspecified (principal); I71.42 Juxtarenal abdominal aortic aneurysm, without rupture; R74.8 Abnormal levels of other serum enzymes | CPT/HCPCS: 71250; 76705; 76981; 93978 ==

== ENCOUNTER → 2025-04-02 | Outpatient (CLI) | payer MEDICARE, OTHER, SELFPAY ==
[2025-04-02 17:40] LABS: Hematocrit 49.8 % (40-54); Hemoglobin 16.8 g/dL (13.0-16.5); Immature Granulocytes Count 0.030 X10^3/uL (0.0-0.0); Mean Corp Hgb Conc 33.7 g/dL (32-36); Mean Corpuscular Volume 85.1 fL (80-94); Mean Platelet Vol. 10.5 fl (6.2-12.0); NRBC Flagged by Analyzer 0 % (0-5); Platelet Count 221 K/mm3 (150-450); RBC Distribution Width CV 14.5 % (11.6-14.6); RBC Distribution Width SD 44.8 fl (35.1-43.9); Red Blood Count 5.85 M/mm3 (4.6-6.2); White Blood Count 12.9 K/mm3 (4.4-11.0)
[2025-04-02 18:12] LABS: Ammonia 31.9 umol/L (16-60)
[2025-04-02 18:28] LABS: AST(SGOT) 38 U/L (<=37); Alanine Aminotransfer ALT/SGPT 67 U/L (<=46); Albumin, Serum 4.0 g/dL (3.4-4.8); Alkaline Phosphatase 80 U/L (40-129); Anion Gap 13 (5-15); BUN 16 mg/dL (4-19); BUN/Creat Ratio 16.9 RATIO (10-20); Calcium,Total 9.3 mg/dL (7.6-11.0); Carbon Dioxide 25.5 mmol/L (21.0-32.0); Chloride 97 mmol/L (98-108); Globulin 3.6 g/dL (2.2-4.2); Glucose 78 mg/dL (70-99); Magnesium 2.2 mg/dL (1.5-2.2); Potassium 3.7 mmol/L (3.3-5.1); Vitamin D,25 Hydroxy 49.8 ng/mL (30-100)
[2025-04-04 08:08] LABS: GGTP 31 IU/L (0-65)
== END | disposition home or self-care (01) ==
LOC: MFPLAB 14:36
PROVIDERS: PCP Family Medicine; Visit Provider Family Medicine
DX: R74.8 Abnormal levels of other serum enzymes (principal); E55.9 Vitamin D deficiency, unspecified
CPT/HCPCS: 36415; 80053; 82140; 82306; 82977; 83735; 85025